=== PATIENT | male | born 1955 | race Caucasian/White ===

== ENCOUNTER → 2016-07-02 | Outpatient (CLI) | payer BC ==
[2016-07-02 13:08] LABS: ALT/SGPT 30 U/L (12-78); AST/SGOT 20 U/L (15-37); BLOOD UREA NITROGEN 26 mg/dl (7-18); BUN/CREATININE RATIO 25.6 (10-20); CALCIUM 8.7 mg/dl (8.5-10.1); CARBON DIOXIDE 31 mmol/L (21-32); CHLORIDE 109 mmol/L (98-107); GLUCOSE 105 mg/dl (70-99); SODIUM 143 mmol/L (136-145)
[2016-07-02 13:11] LABS: ALB/GLOB RATIO 1.3 (0.9-2); ALKALINE PHOSPHATASE 69 U/L (45-117); CHOLESTEROL 125 mg/dl (0-200); CHOLESTEROL/HDL RATIO 3.4; HDL CHOLESTEROL 37 mg/dl; LDL CHOLESTEROL CALCULATED 69 mg/dl; TRIGLYCERIDES 96 mg/dl (0-150); VERY LOW DENSITY LIPOPROT CALC 19 mg/dl
[2016-07-02 13:22] LABS: ESTIMATED AVERAGE GLUCOSE 128 mg/dl; HA1C FLAG Normal (Normal)
== END | disposition home or self-care (01) ==
LOC: C.LABPVFM 08:14
PROVIDERS: ATTEND Family Medicine
DX: R73.01 Impaired fasting glucose (principal); E78.5 Hyperlipidemia, unspecified; I10 Essential (primary) hypertension

== ENCOUNTER → 2016-12-31 | Outpatient (CLI) | payer BC ==
[2016-12-31 13:28] LABS: ESTIMATED AVERAGE GLUCOSE 123 mg/dl; HA1C FLAG Normal (Normal)
[2016-12-31 13:33] LABS: ALB/GLOB RATIO 1.2 (0.9-2); ALKALINE PHOSPHATASE 66 U/L (45-117); ALT/SGPT 30 U/L (12-78); AST/SGOT 23 U/L (15-37); BLOOD UREA NITROGEN 26 mg/dl (7-18); BUN/CREATININE RATIO 26.4 (10-20); CALCIUM 9.3 mg/dl (8.5-10.1); CARBON DIOXIDE 29 mmol/L (21-32); CHLORIDE 108 mmol/L (98-107); CHOLESTEROL 122 mg/dl (0-200); GLUCOSE 110 mg/dl (70-99); HDL CHOLESTEROL 41 mg/dl; LDL CHOLESTEROL CALCULATED 67 mg/dl; POTASSIUM 4.3 mmol/L (3.5-5.1); SODIUM 141 mmol/L (136-145); TRIGLYCERIDES 68 mg/dl (0-150); VERY LOW DENSITY LIPOPROT CALC 14 mg/dl
== END | disposition home or self-care (01) ==
LOC: C.LABPVFM 08:19
PROVIDERS: ATTEND Family Medicine
DX: I10 Essential (primary) hypertension (principal); E78.5 Hyperlipidemia, unspecified

== ENCOUNTER → 2017-06-27 | Outpatient (CLI) | payer BC ==
[2017-06-27 17:34] LABS: ALBUMIN 4.1 gm/dl (3.4-5.0); BLOOD UREA NITROGEN 24 mg/dl (7-18); CALCIUM 9.3 mg/dl (8.5-10.1); CARBON DIOXIDE 29 mmol/L (21-32); CHOLESTEROL 133 mg/dl (0-200); CREATININE 1.07 mg/dl (0.60-1.40); GLUCOSE 90 mg/dl (70-99); POTASSIUM 3.8 mmol/L (3.5-5.1); SODIUM 138 mmol/L (136-145)
[2017-06-27 17:35] LABS: BASO % 0.5 %; BASO ABS # 0.03 K/uL (0-0.2); EOS % 0.8 %; EOS ABS # 0.05 K/uL (0-0.5); HEMATOCRIT 41.5 % (42-52); HEMOGLOBIN 14.1 g/dL (14.0-18.0); IG# 0.01 K/uL (0.00-0.02); LYMPH % 34.5 %; LYMPH ABS # 2.25 K/uL (1.2-3.4); MEAN CELL VOLUME 91.4 fL (80-100); MEAN CORPUSCULAR HEMOGLOBIN 31.1 pg (25-34); MEAN PLATELET VOLUME 9.1 fL (7.4-10.4); MONO % 8.4 %; MONO ABS # 0.55 K/uL (0.11-0.59); NEUT % 55.6 %; NEUT ABS # 3.63 K/uL (1.4-6.5); PLATELET COUNT 191 K/uL (130-400); RED CELL DISTRIBUTION WIDTH CV 14.3 % (11.5-14.5); WHITE BLOOD COUNT 6.52 K/uL (4.8-10.8)
[2017-06-27 17:40] LABS: ALKALINE PHOSPHATASE 64 U/L (45-117); ALT/SGPT 29 U/L (12-78); AST/SGOT 21 U/L (15-37); LDL CHOLESTEROL CALCULATED 75 mg/dl; TOTAL PROTEIN 7.1 gm/dl (6.4-8.2)
== END | disposition home or self-care (01) ==
LOC: C.LABPVFM 15:51
PROVIDERS: ATTEND Family Medicine
DX: I10 Essential (primary) hypertension (principal); E78.5 Hyperlipidemia, unspecified; E88.81 Metabolic syndrome and other insulin resistance; R73.01 Impaired fasting glucose; E66.9 Obesity, unspecified

== ENCOUNTER 2023-03-24 22:05 | Inpatient (IN) ==
[2023-03-24] MEDS ORDERED: SODIUM CHLORIDE 0.9% 500 ML IV STA (22:23)
[2023-03-24] MEDS ORDERED: THIAMINE HCL 200 MG in SODIUM CHLORIDE 0.9% 50 ML IV STA (22:23)
[2023-03-24] MEDS ORDERED: MAGNESIUM SULFATE / D5W 1 GM/100 ML BAG IV STA (22:24)
[2023-03-24] MEDS ORDERED: ATROPINE SO4 1 MG/ML 1ML VIAL ONE (22:28)
--- NOTE | 2023-03-24 22:34 | Emergency Department Note ---
Impression & Plan Syncope, Third degree heart block ED Provider Note NAME: ANASTASIA RADER AGE: 67 SEX: M : 1955 ARRIVES VIA: Walk-In INFORMANT: Patient, ED PROVIDER(S): Roger Jeffery DO CHIEF COMPLAINT: Syncope HPI: The patient is a 67-year-old male who presented to the emergency department for an evaluation of near syncope. The patient was seen in our facility a few days ago with similar complaints. At that time he did actually have a syncopal episode. He fell and struck his face. He had a CT of his head and neck at that time. The patient did not have any clear reason for his syncope and he was able to be discharged home. The patient presents emerged from today because of ongoing and worsening symptoms. I was asked to evaluate the patient after his EKG appeared to be consistent with third-degree heart block. The patient states that he is asymptomatic at this time. He denies having any recent colds or illnesses. He did not noticed any recent tick bites or leg swelling. ROS: See above HPI for pertinent positives & negatives. A total of 10 systems reviewed and were otherwise negative. PAST MEDICAL HISTORY: See Below PAST SURGICAL HISTORY: See Below FAMILY HISTORY: See Below SOCIAL HISTORY: See Below HOME MEDICATIONS: See Below ALLERGIES: See Below VITALS: See Below PHYSICAL EXAMINATION: GENERAL: Patient is awake alert in no acute distress patient is resting comfortably and showing no signs of anxiety EYES: The conjunctivae are clear. The pupils are round and reactive. EARS, NOSE, MOUTH AND THROAT: The nose is without any evidence of any deformity. NECK: The neck is nontender and supple. RESPIRATORY: Normal respiratory effort is noted there is no evidence of wheezing rhonchi or rales CARDIOVASCULAR: Bradycardic and faint heart sounds were noted. There is no definite murmur. GASTROINTESTINAL: The abdomen is soft. Abdomen is nontender. MUSCULOSKELETAL/EXTREMITIES: There is no evidence of gross deformity full range of motion is noted in the hips and shoulders. SKIN: Pedal edema was noted bilaterally. Skin was warm and dry NEUROLOGIC: Patient is awake alert and oriented x3 MEDICAL DECISION MAKING: The patient is a 67-year-old male who presented to the emergency department for an evaluation of syncope. The patient's been having problems with syncope recently. He was seen in our facility a few days ago for similar complaints. The patient did not have any definite cause for his syncope found on his initial ER workup. He presented this evening with similar complaints and was found to be in third-degree heart block. He had a very low heart rate and appeared to be symptomatic. He was treated with atropine with good resolution of his dysrhythmia and now appears to be in a first-degree heart block. I discussed the patient's condition with the on-call [facility] line decorator. I also discussed this case with the on-call [facility] hospitalist. They have agreed to evaluate the patient in the emergency department for further management and disposition. Triage Nursing notes reviewed. Prior medical records reviewed Vital Signs: reviewed and remarkable for initial bradycardia. Differential diagnosis: Vasovagal event, dehydration, infection, hypoglycemia, electrolyte abnormalities, cardiac sources, intracerebral event, pulmonary embolism, seizure, toxicologic, neurologic, as well as other pathologies. ER treatment provided: See below Diagnostics interpreted by me: ECG: EKG was obtained in the emergency department. My interpretation is third- degree heart block at 42 bpm. PVCs were noted. A right bundle branch block pattern was appreciated. This was compared to a tracing from March 22, 2023. First-degree AV block was noted on the previous tracing. A second EKG was obtained in the emergency department. This was obtained after the administration of atropine. My interpretation is sinus tachycardia 109 bpm. Right bundle branch block pattern was noted. First-degree AV block was noted. This compares similar to the EKG obtained on March 22, 2023 although the rate is increased. Cardiac Monitoring: An order was placed for continuous cardiac monitoring. The monitor shows a rate of 94 bpm with first-degree heart block. Laboratory studies: As stated above and show below. Imaging studies: See below. Radiographic imaging was reviewed by myself Consultation(s): I discussed this case with Dr. Lyman who is on-call for [facility] cardiology. The case was discussed with Clyde who is on-call for the [facility] hospitalist group ED COURSE: Procedures: none Critical Care: I have personally spent greater than 35 minutes of critical care time in the direct management of this patient. This includes bedside care, interpretation of diagnostic studies, and testing, discussion with consultants, patient, and family members, and other required patient management activities. This 35 minutes is in excess of all separately billable procedures. Past Med/Surg History Medical History Tendinitis of left rotator cuff Sensorineural hearing loss (SNHL) of left ear with restricted hearing of right ear Left-sided tinnitus Anxiety [place] FEELS PRESSURE ON LEFT SIDE AND BURP WHEN I SWALLOW, COMES AND GOES - REASON FOR UPCOMING PROCEDURE Tick bite hx of , no lymes disease Hx of hemorrhoids Gout hx x 1 - no re-occurence Hyperlipidemia Hypertension Obesity, Class II, BMI 35-39.9 Surgical History History of colonoscopy [place] teeth extracted History of hemorrhoidectomy Family History Mother Family history of cancer Cancer Father Family history of cancer Family history of stomach cancer Cancer Other Hypertension No family history of adverse response to anesthesia No family history of bleeding disorder No pertinent family history Denies family history of Ovarian cancer Prostate cancer Heart disease Myocardial infarction Breast cancer Colorectal cancer Stroke Asthma Social History Smoking Status: Never smoker Second Hand Exposure: No; Do You Dip or Chew Tobacco: No; Hx Alcohol Use: Yes Alcohol type: hard liquor Alcohol type Comment: Fernando Malloy or perez Alcohol Intake Frequency: Monthly or Less Hx Substance Use: No Preferred Language: Luxembourger Communication Ability: Effective Consulting Practice Manager Required: No Beliefs That Will Affect Care: None marital status: Single Current Living Situation: Alone current occupational status: retired How many Children do You have: 0 Feels Safe at Home: Yes Childhood Exposure to Second-Hand Smoke: Yes Diet: regular caffeine: No Dental Care, Regularly: Yes Physical Activity Frequency: 1-2 Times per Week Seatbelt Use: always Sunscreen Use: Yes Assistive Devices: Glasses Allergies Allergies Allergy/AdvReac Type Severity Reaction Status Date / Time amoxicillin Allergy Unknown Rash Verified 02/01/23 14:02 animal dander Allergy Unknown Sneezing Verified 02/01/23 14:02 house dust Allergy Unknown Sneezing Verified 02/01/23 14:02 mold Allergy Unknown Sneezing Verified 02/01/23 14:02 Penicillins Allergy Unknown Rash Verified 02/01/23 14:02 pollen extracts Allergy Unknown Sneezing Verified 02/01/23 14:02 Home Meds Home Medications Medication Instructions Recorded Confirmed Allergy Shots 1 dose UD PRN allergies 03/15/21 02/01/23 azelastine 137 mcg (0.1 %) nasal 1 spray intranasal UD PRN Nasal 03/15/21 02/01/23 spray aerosol Congestion baclofen 10 mg tablet 10 mg PO UD PRN tension 03/15/21 02/01/23 Previous Rx's Medication Instructions Recorded montelukast 10 mg tablet See Rx Instructions .Route 08/22/22 .COMPLEX #30 tabs mldfknzpub-tzoclblkrrlso-rzxawazc 1 tab PO Q6H #30 tabs 09/12/22 50 mg-325 mg-40 mg tablet bupropion HCl 150 mg 24 hr tablet, 150 mg PO QAM #30 tabs 10/24/22 extended release (Wellbutrin XL) tamsulosin 0.4 mg capsule (Flomax) 0.4 mg PO QPM #90 caps 11/07/22 escitalopram oxalate 20 mg tablet 20 mg PO QAM #90 tabs 12/15/22 (Lexapro) irbesartan 150 mg tablet 150 mg PO QPM #90 tabs 12/15/22 omeprazole 40 mg capsule,delayed See Rx Instructions .Route 01/29/23 release .COMPLEX #90 caps levocetirizine 5 mg tablet 5 mg PO DAILY #30 tabs 02/01/23 atorvastatin 80 mg tablet 80 mg PO QPM #90 tabs 02/06/23 fluticasone propionate 50 1 spray intranasal BID #16 grams 02/28/23 mcg/actuation nasal spray,suspension lorazepam 0.5 mg tablet (Ativan) 0.5 mg PO UD PRN anxiety #15 tabs 02/28/23 hydrochlorothiazide 25 mg tablet 25 mg PO QAM #90 tabs 03/21/23 Results & Data (ED) Vital Signs Vital Signs - 24 hr 03/24/23 22:12 03/24/23 22:20 03/24/23 22:37 Temperature 36.3 C L Temperature Source Temporal Artery Scan Pulse Rate 36 L 36 L 117 H Pulse Rate [Apical] Pulse Rhythm [Apical] Pulse Strength [Apical] Respiratory Rate 18 Respiratory Effort / Characteristics Non-Labored Spontaneous Respiratory Depth Normal Respiratory Pattern Blood Pressure 142/70 H Blood Pressure [Right Arm] Blood Pressure Mean 94 Blood Pressure Mean [Right Arm] Pulse Oximetry 95 Oxygen Delivery Method Room Air Sepsis Recent Fever Within 48 Hours No Sepsis New/Unexplained Change in Mental Status No Sepsis Action Taken by Nursing No Action Required 03/24/23 22:50 Temperature Temperature Source Pulse Rate Pulse Rate [Apical] 103 H Pulse Rhythm [Apical] Regular Pulse Strength [Apical] Normal Respiratory Rate 17 Respiratory Effort / Characteristics Non-Labored Spontaneous Respiratory Depth Normal Respiratory Pattern Regular Blood Pressure Blood Pressure [Right Arm] 128/93 Blood Pressure Mean Blood Pressure Mean [Right Arm] 104 Pulse Oximetry 92 Oxygen Delivery Method Room Air Sepsis Recent Fever Within 48 Hours Sepsis New/Unexplained Change in Mental Status Sepsis Action Taken by Assisted Medications Current Medication List: was personally reviewed by me Laboratory Data Attestation: I reviewed the patient's lab results. 03/24/23 22:30 03/24/23 22:30 Lab Results 03/24/23 03/24/23 03/24/23 Range/Units 22:30 22:35 23:07 WBC 11.51 H (4.8-10.8) K/ul RBC 4.88 (4.70-6.10) M/uL Hgb 14.7 (14.0-18.0) g/dl POC Hgb 15.3 (14.0-18.0) g/dl Hct 45.2 (42.0-52.0) % POC Hct 45 (42-52) % MCV 92.6 (80.0-100.0) fL MCH 30.1 (25.0-34.0) pg MCHC 32.5 (32.0-36.0) g/dL RDW Std Deviation 46.7 H (36.4-46.3) fL RDW Coeff of Marcus 13.8 (11.5-14.5) % Plt Count 212 (130-400) K/uL MPV 9.4 (9.4-12.4) fL Immature Gran % (Auto) 0.3 % Neut % (Auto) 77.8 % Lymph % (Auto) 13.4 % [place] % (Auto) 7.8 % Eos % (Auto) 0.3 % Baso % (Auto) 0.4 % Neut # (Auto) 8.95 H (1.40-6.50) K/uL Lymph # (Auto) 1.54 (1.20-3.40) K/uL [place]ell # (Auto) 0.90 H (0.11-0.59) K/uL Eos # (Auto) 0.03 (0.00-0.50) K/uL Baso # (Auto) 0.05 (0.00-0.20) K/uL Immature Gran # (Auto) 0.04 (0.01-0.20) K/uL PT 10.6 (9.0-12.0) Seconds INR 1.0 (0.9-1.1) APTT 21 (21-31) Seconds PTT Ratio 0.7 POC Sodium 139 (135-144) mmol/L Sodium 138 (136-145) mmol/L POC Potassium 4.5 (3.3-5.0) mmol/L Potassium 3.6 (3.5-5.1) mmol/L POC Chloride 103 (101-112) mmol/L Chloride 102 (98-107) mmol/L Carbon Dioxide 24 (21-32) mmol/L POC Total CO2 26 (24-31) mmol/L Anion Gap 12 H (3-11) POC Anion Gap 16.0 (16-25) mmol/L POC BUN 26 H (7-18) mg/dl BUN 22 (6-23) mg/dl Creatinine 1.19 (0.6-1.4) mg/dl POC Creatinine 1.3 (0.6-1.3) mg/dl Est Cr Clr Drug Dosing 69.5 ml/min Est GFR ( Amer) 71.8 ml/min Est GFR (Non-Af Amer) 62.0 ml/min BUN/Creatinine Ratio 18.5 (10-20) Glucose 109 H (70-99(Fasting)) mg/dl POC Glucose (other) 111 H (70-99) mg/dl Calcium 9.9 (8.6-10.3) mg/dl POC Ioniz Calcium Chandler 1.12 (1.12-1.32) mmol/l Magnesium 2.1 (1.7-2.4) mg/dl Total Bilirubin 0.9 (0.2-1.0) mg/dl ALT 23 (7-52) U/L Alkaline Phosphatase 108 H (34-104) U/L Troponin I High Sens 38.2 H (0-20) pg/ml Total Protein 7.4 (6.0-8.3) gm/dl Albumin 4.4 (3.4-5.0) gm/dl Globulin 3.0 (2.5-4.0) gm/dl Albumin/Globulin Ratio 1.5 (0.9-2) TSH 1.520 (0.300-4.500) uIu/ml Ethyl Alcohol mg/dL < 10.0 (<10.0) mg/dl Lyme Disease IgG Ab Negative (Negative) Lyme Disease IgM Ab Negative (Negative) Administered Medications Discontinued Medications Atropine Sulfate (Atropine So4 1 Mg/Ml 1ml Vial) Confirm Administered Dose 1 mg .ROUTE .[employer] ONE Stop: 03/24/23 22:29 Last Admin: 03/24/23 22:29 Dose: 0.5 mg Documented By: FELECIA Sodium Chloride (Nss) 500 mls @ 999 mls/hr IV .Q31M STA Stop: 03/24/23 22:53 Last Infusion: 03/25/23 00:10 Dose: Infused Documented By: Admin: 03/24/23 22:48 Dose: 999 mls/hr Documented By: ALEXA Thiamine HCl 200 mg/ Sodium (Chloride) 52 mls @ 210 mls/hr IV NOW STA Stop: 03/24/23 22:37 Last Admin: 03/25/23 00:09 Dose: 210 mls/hr Documented By: MARTHA Magnesium Sulfate/Dextrose (Magnesium Sulfate / D5w) 1 gm in 100 mls @ 100 mls/hr IV NOW STA Stop: 03/24/23 23:23 Last Infusion: 03/25/23 00:10 Dose: Infused Documented By: Admin: 03/24/23 22:32 Dose: 100 mls/hr Documented By: FELECIA Imaging Data Attestation: I personally reviewed and interpreted this imaging study as follows: My Impression: 1 view chest x-ray was obtained in the emergency department. My interpretation is no free air or definite infiltrate, final report below Radiologist's Impression: Chest X-Ray 03/24/23 22:24 SINGLE VIEW CHEST CLINICAL HISTORY: Dysrhythmia. FINDINGS: 2 AP, portable, upright chest radiographs are compared to study dated 06/29/2022. The heart is enlarged noting atherosclerotic calcification of the thoracic aorta. The pulmonary vasculature is noncongested. There is chronic elevation of the right hemidiaphragm with mild bibasilar atelectasis. The lungs and pleural spaces are otherwise clear. No pneumothorax is seen. The skeletal structures are osteopenic. The bony thorax is grossly intact. IMPRESSION: Mild cardiomegaly with no active disease in the chest. ACT 112: Negative or not required by law. Electronically signed by: Elieser Schneider M.D. 03/24/2023 10:45 PM Discharge Plan Visit Data Chief Complaint: Illness Stated Complaint: SHAKING, UNBALANCED, STANDS UP/FEELS OUT OF IT ED Provider: Roger Jeffery Discharge Problem: Syncope, Third degree heart block Patient Disposition: Being Evaluated by Hospitalist Forms Stand Alone Forms: My [facility] Prescriptions Prescriptions: No Action montelukast 10 mg tablet See Rx Instructions .ROUTE .COMPLEX Qty: 30 11RF Dose Instruction: TAKE ONE TABLET BY MOUTH ONCE DAILY IN THE EVENING Rx Instructions: TAKE ONE TABLET BY MOUTH ONCE DAILY IN THE EVENING ijsvyafbsj-cvtucdtjgdrvc-lfge 50-325-40 mg tablet 1 tab PO Q6H Qty: 30 5RF bupropion HCl [Wellbutrin XL] 150 mg tablet extended release 24 hr 150 mg PO QAM Qty: 30 5RF tamsulosin [Flomax] 0.4 mg capsule 0.4 mg PO QPM Qty: 90 1RF escitalopram oxalate [Lexapro] 20 mg tablet 20 mg PO QAM Qty: 90 1RF irbesartan 150 mg tablet 150 mg PO QPM Qty: 90 1RF omeprazole 40 mg capsule,delayed release(DR/EC) See Rx Instructions .ROUTE .COMPLEX Qty: 90 5RF Dose Instruction: TAKE 1 CAPSULE BY MOUTH ONCE DAILY Rx Instructions: TAKE 1 CAPSULE BY MOUTH ONCE DAILY atorvastatin 80 mg tablet 80 mg PO QPM Qty: 90 1RF fluticasone propionate 50 mcg/actuation spray,suspension 1 spray INTNAS BID Qty: 16 0RF Rx Instructions: 1 to 2 sprays INTNAS DAILY; administer into each nostril lorazepam [Ativan] 0.5 mg tablet 0.5 mg PO UD PRN (Reason: anxiety) Qty: 15 0RF hydrochlorothiazide 25 mg tablet 25 mg PO QAM Qty: 90 1RF levocetirizine 5 mg tablet 5 mg PO DAILY Qty: 30 11RF baclofen 10 mg tablet 10 mg PO UD PRN (Reason: tension) azelastine 137 mcg (0.1 %) aerosol,spray 1 spray intranasal UD PRN (Reason: Nasal Congestion) Patient Comments: not very much Rx Instructions: Use 1-2 sprays in each nostril at bedtime as needed for nasal congestion. Allergy Shots 1 dose UD PRN (Reason: allergies) Patient Comments: once every 2 weeks Referrals Referrals: Pat Andujar MD [Primary Care Provider] - Discharge Problem: Syncope Qualifiers: Syncope type: unspecified Qualified Code(s): R55 - Syncope and collapse
--- NOTE | 2023-03-24 22:46 | XRay Report ---
SINGLE VIEW CHEST CLINICAL HISTORY: Dysrhythmia. FINDINGS: 2 AP, portable, upright chest radiographs are compared to study dated 06/29/2022. The heart is enlarged noting atherosclerotic calcification of the thoracic aorta. The pulmonary vasculature is noncongested. There is chronic elevation of the right hemidiaphragm with mild bibasilar atelectasis. The lungs and pleural spaces are otherwise clear. No pneumothorax is seen. The skeletal structures ar e osteopenic. The bony thorax is grossly intact. IMPRESSION: Mild cardiomegaly with no active disease in the chest. ACT 112: Negative or not required by law. Electronically signed by: Elieser Schneider M.D. 03/24/2023 10:45 PM
[2023-03-24 22:48] LABS: iSTAT Creatinine 1.3 mg/dl (0.6-1.3); iSTAT Hemoglobin 15.3 g/dl (14.0-18.0); iSTAT Ionized Calcium 1.12 mmol/l (1.12-1.32); iSTAT Potassium 4.5 mmol/L (3.3-5.0)
[2023-03-24 23:04] LABS: Basophils # (auto) 0.05 K/uL (0.00-0.20); Basophils % (auto) 0.4 %; Eosinophils # (auto) 0.03 K/uL (0.00-0.50); Eosinophils % (auto) 0.3 %; Hematocrit (blood only) 45.2 % (42.0-52.0); Hemoglobin 14.7 g/dl (14.0-18.0); Immature Granulocytes # (auto) 0.04 K/uL (0.01-0.20); Immature Granulocytes % (auto) 0.3 %; Lymphocytes # (auto) 1.54 K/uL (1.20-3.40); Lymphocytes % (auto) 13.4 %; Mean Corpuscular Hemoglobin 30.1 pg (25.0-34.0); Mean Corpuscular Hgb Conc 32.5 g/dL (32.0-36.0); Mean Corpuscular Volume 92.6 fL (80.0-100.0); Mean Platelet Volume 9.4 fL (9.4-12.4); Monocytes % (auto) 7.8 %; Neutrophils # (auto) 8.95 K/uL (1.40-6.50); Neutrophils % (auto) 77.8 %; Platelet Count 212 K/uL (130-400); RDW Coefficient of Variation 13.8 % (11.5-14.5); RDW Standard Deviation 46.7 fL (36.4-46.3); Red Blood Count 4.88 M/uL (4.70-6.10); White Blood Count 11.51 K/ul (4.8-10.8)
[2023-03-24 23:27] LABS: Partial Thromboplastin Ratio 0.7; Partial Thromboplastin Time 21 Seconds (21-31); Prothrombin Time 10.6 Seconds (9.0-12.0)
[2023-03-24 23:35] LABS: Lyme Ab IgG w/WB Rflx Negative (Negative); Lyme Ab IgM w/WB Rflx Negative (Negative)
[2023-03-24 23:48] LABS: Albumin Globulin Ratio 1.5 (0.9-2); Albumin Level 4.4 gm/dl (3.4-5.0); BUN Creatinine Ratio 18.5 (10-20); Bilirubin,Total 0.9 mg/dl (0.2-1.0); Calcium 9.9 mg/dl (8.6-10.3); Creatinine Clr Calc Pharmacy 69.5 ml/min; Est GFR (African American) 71.8 ml/min; Magnesium 2.1 mg/dl (1.7-2.4); Thyroid Stimulating Hormone 1.52 uIu/ml (0.300-4.500); Total Protein 7.4 gm/dl (6.0-8.3); Troponin I High Sensitivity 38.2 pg/ml (0-20)
[2023-03-24 23:51] LABS: Potassium 3.6 mmol/L (3.5-5.1)
--- NOTE | 2023-03-25 00:45 | History & Physical Report ---
Date of Service March 25, 2023 Assessment & Plan (1) Admitted to intensive care unit: (2) Third degree heart block: (3) Syncope: (4) Depression: (5) Sleep disorder, circadian, delayed sleep phase type: (6) CHI (closed head injury): (7) BPH loc w urin obs/LUTS: (8) Hypertension: (9) Hyperlipidemia: Plan Admitted to intensive care unit/third-degree heart block/recurrent syncope- The patient will be admitted to ICU for serial cardiac enzymes, serial EKG's, cardiac rhythm monitoring and a 2-D echocardiogram with Dopplers. NPO except sips Status post atropine 1 mg IV in the ED Present heart rate low 103, and blood pressure 128/93 If symptoms occur again, patient will be started on dopamine at that time Consult feedmobile driver Dr. Norman and staff Optimize potassium of 3.6 with 2 KCl 10 mill equivalent riders to a target of 4. Magnesium is acceptable at 2.1 Lyme test negative Troponin 38.2, with follow-up pending CT head and cervical spine - 03/22/2023 Patient has had monitors in the outpatient setting, which have noted episodes of tachycardia and extra heartbeats. Consult cardiology for assessment for need for pacer Follow serial CBC with differential, chemistry profile and magnesium levels Depression- While n.p.o., hold Bupropion, escitalopram, lorazepam Hypertension- Hold HCTZ and irbesartan BPH with LUTS- On tamsulosin 0.4 mg at bedtime. Not likely a contributing factor History of Present Illness Chief Complaint: The patient presents to the emergency department with an approximate 8-year history of near syncopal episodes, which he reports have worsened since November. He was most recently seen in the emergency department 2 days ago for a syncopal episode, had workup done at that time which was negative. He presents to the emergency department this evening due to another episode of near syncope, and in the emergency department was found to be in third-degree heart block with heart rate of 36, which responded to atropine with increased heart rate to the low 100s, and blood pressure continued to be in the normal range with 120s-130s over Primary Care Provider: Pat Andujar MD The patient is a 67-year-old male with a past medical history including syncope, left rotator cuff tendinitis and bicipital tendinitis, SNHL, Anderson's esophagus, impaired fasting glucose, BPH, bifascicular block, circadian rhythm delayed sleep disorder, and depression. The patient presents to the emergency department with an episode of syncope on 03/22, with negative workup at that time, and a recurrent episode of near syncope this evening. He was found to be in third-degree heart block, given atropine IV from the ED, and was then referred for evaluation for admission. Allergies Allergy/AdvReac Type Severity Reaction Status Date / Time amoxicillin Allergy Intermediate Rash Verified 03/25/23 00:12 animal dander Allergy Mild Sneezing Verified 03/25/23 00:12 house dust Allergy Mild Sneezing Verified 03/25/23 00:12 mold Allergy Mild Sneezing Verified 03/25/23 00:12 Penicillins Allergy Mild Rash Verified 03/25/23 00:12 pollen extracts Allergy Mild Sneezing Verified 03/25/23 00:12 Home Medications Medication Instructions Recorded Confirmed Type Allergy Shots 1 dose subcut UD PRN allergies 03/15/21 03/25/23 History azelastine 137 mcg (0.1 %) nasal 1 spray intranasal UD PRN Nasal 03/15/21 03/25/23 History spray aerosol Congestion baclofen 10 mg tablet 10 mg PO UD PRN tension 03/15/21 03/25/23 History bupropion HCl 150 mg 24 hr tablet, 150 mg PO QAM #30 tabs 10/24/22 03/25/23 Rx extended release (Wellbutrin XL) tamsulosin 0.4 mg capsule (Flomax) 0.4 mg PO QPM #90 caps 11/07/22 03/25/23 Rx escitalopram oxalate 20 mg tablet 20 mg PO QAM #90 tabs 12/15/22 03/25/23 Rx (Lexapro) irbesartan 150 mg tablet 150 mg PO QPM #90 tabs 12/15/22 03/25/23 Rx levocetirizine 5 mg tablet 5 mg PO DAILY #30 tabs 02/01/23 03/25/23 Rx atorvastatin 80 mg tablet 80 mg PO QPM #90 tabs 02/06/23 03/25/23 Rx fluticasone propionate 50 1 spray intranasal BID #16 grams 02/28/23 03/25/23 Rx mcg/actuation nasal spray,suspension lorazepam 0.5 mg tablet (Ativan) 0.5 mg PO UD PRN anxiety #15 tabs 02/28/23 03/25/23 Rx hydrochlorothiazide 25 mg tablet 25 mg PO QAM #90 tabs 03/21/23 03/25/23 Rx keiooagrbq-fbyndcwrlpdeu-qvkghsur 1 tab PO Q6H PRN HEADACHES 03/25/23 03/25/23 History 50 mg-325 mg-40 mg tablet montelukast 10 mg tablet 10 mg PO QPM 03/25/23 03/25/23 History omeprazole 40 mg capsule,delayed 40 mg PO DAILY 03/25/23 03/25/23 History release Past Med/Surg History Medical History (Updated 03/25/23 @ 01:12 by Ismael Tang MD) BPH loc w urin obs/LUTS Tendinitis of left rotator cuff Sensorineural hearing loss (SNHL) of left ear with restricted hearing of right ear Left-sided tinnitus Anxiety Burping FEELS PRESSURE ON LEFT SIDE AND BURP WHEN I SWALLOW, COMES AND GOES - REASON FOR UPCOMING PROCEDURE Tick bite hx of , no lymes disease Hx of hemorrhoids Gout hx x 1 - no re-occurence Hyperlipidemia Hypertension Obesity, Class II, BMI 35-39.9 Surgical History History of colonoscopy [place] teeth extracted History of hemorrhoidectomy Family History Mother Family history of cancer Cancer Father Family history of cancer Family history of stomach cancer Cancer Other Hypertension No family history of adverse response to anesthesia No family history of bleeding disorder No pertinent family history Denies family history of Ovarian cancer Prostate cancer Heart disease Myocardial infarction Breast cancer Colorectal cancer Stroke Asthma Social History Smoking Status: Never smoker Second Hand Exposure: No; Do You Dip or Chew Tobacco: No; Hx Alcohol Use: Yes Alcohol type: hard liquor Alcohol type Comment: Fernando Malloy or perez Alcohol Intake Frequency: Monthly or Less Hx Substance Use: No Preferred Language: Malaysian Communication Ability: Effective Clerical Coordinator Required: No Beliefs That Will Affect Care: None marital status: Single Current Living Situation: Alone current occupational status: retired How many Children do You have: 0 Feels Safe at Home: Yes Childhood Exposure to Second-Hand Smoke: Yes Diet: regular caffeine: No Dental Care, Regularly: Yes Physical Activity Frequency: 1-2 Times per Week Seatbelt Use: always Sunscreen Use: Yes Assistive Devices: Glasses Review of Systems Review of Systems: The patient denies palpitations, cough, lower extremity swelling, sore throat, fevers, chills, sweats, nausea, vomiting, diarrhea , constipation, abdominal pa in, pelvic pain, blood in urine or stool, dysuria, urinary frequency or urgency, rash, abnormal bruising or bleeding, focal weakness, numbness or tingling in arms or legs, generalized arthralgias or myalgias, back or neck pain, or night sweats. The review of systems is otherwise negative other than for that already noted above, and at least 10 systems have been reviewed. Physical Exam Physical Exam: The patient is awake, alert and oriented 3, well developed and well nourished, normocephalic and atraumatic, lying in bed and in no acute distress. HEENT--PERRL, EOMI, mucous membranes and oropharynx mildly dry. Neck--supple. No JVD. No bruits. Thyroid normal, trachea midline, no adenopathy. Heart--normal S1 and S2. No murmurs, rubs or gallops. Lungs--clear bilaterally, no respiratory distress, no accessory muscle use. Abdomen--normal bowel sounds and soft. Nontender. Nondistended. Obese Extremities--no cyanosis or clubbing. No edema. Dermatologic--normal skin turgor, normal color, no abnormal lymph nodes, no rash. Neurologic--cranial nerves II through XII grossly intact. Rheumatologic--normal range of motion. Psychiatric--normal affect. Results & Data Results & Data Vital Signs (Past 12 Hours) Vital Signs Temp Pulse Pulse Resp BP BP Pulse Ox 03/24/23 22:50 103 H 17 128/93 92 03/24/23 22:37 117 H 03/24/23 22:20 36 L 03/24/23 22:12 36.3 C L 36 L 18 142/70 H 95 O2 Del Method 03/24/23 22:50 Room Air 03/24/23 22:37 03/24/23 22:20 03/24/23 22:12 Room Air Laboratory Results Laboratory Results WBC 11.51 K/ul (4.8-10.8) H 03/24/23 22:30 RBC 4.88 M/uL (4.70-6.10) 03/24/23 22:30 Hgb 14.7 g/dl (14.0-18.0) 03/24/23 22:30 POC Hgb 15.3 g/dl (14.0-18.0) 03/24/23 22:35 Hct 45.2 % (42.0-52.0) 03/24/23 22:30 POC Hct 45 % (42-52) 03/24/23 22:35 MCV 92.6 fL (80.0-100.0) 03/24/23 22:30 MCH 30.1 pg (25.0-34.0) 03/24/23 22:30 MCHC 32.5 g/dL (32.0-36.0) 03/24/23 22:30 RDW Std Deviation 46.7 fL (36.4-46.3) H 03/24/23 22:30 RDW Coeff of Marcus 13.8 % (11.5-14.5) 03/24/23 22:30 Plt Count 212 K/uL (130-400) 03/24/23 22:30 MPV 9.4 fL (9.4-12.4) 03/24/23 22:30 Immature Gran % (Auto) 0.3 % 03/24/23 22:30 Neut % (Auto) 77.8 % 03/24/23 22:30 Lymph % (Auto) 13.4 % 03/24/23 22:30 [place] % (Auto) 7.8 % 03/24/23 22:30 Eos % (Auto) 0.3 % 03/24/23 22:30 Baso % (Auto) 0.4 % 03/24/23 22:30 Neut # (Auto) 8.95 K/uL (1.40-6.50) H 03/24/23 22:30 Lymph # (Auto) 1.54 K/uL (1.20-3.40) 03/24/23 22:30 [place] # (Auto) 0.90 K/uL (0.11-0.59) H 03/24/23 22:30 Eos # (Auto) 0.03 K/uL (0.00-0.50) 03/24/23 22:30 Baso # (Auto) 0.05 K/uL (0.00-0.20) 03/24/23 22:30 Immature Gran # (Auto) 0.04 K/uL (0.01-0.20) 03/24/23 22:30 PT 10.6 Seconds (9.0-12.0) 03/24/23 22:30 INR 1.0 (0.9-1.1) 03/24/23 22:30 APTT 21 Seconds (21-31) 03/24/23 22:30 PTT Ratio 0.7 03/24/23 22:30 POC Sodium 139 mmol/L (135-144) 03/24/23 22:35 Sodium 138 mmol/L (136-145) 03/24/23 22:30 POC Potassium 4.5 mmol/L (3.3-5.0) 03/24/23 22:35 Potassium 3.6 mmol/L (3.5-5.1) 03/24/23 22:30 POC Chloride 103 mmol/L (101-112) 03/24/23 22:35 Chloride 102 mmol/L (98-107) 03/24/23 22:30 Carbon Dioxide 24 mmol/L (21-32) 03/24/23 22:30 POC Total CO2 26 mmol/L (24-31) 03/24/23 22:35 Anion Gap 12 (3-11) H 03/24/23 22:30 POC Anion Gap 16.0 mmol/L (16-25) 03/24/23 22:35 POC BUN 26 mg/dl (7-18) H 03/24/23 22:35 BUN 22 mg/dl (6-23) 03/24/23 22:30 Creatinine 1.19 mg/dl (0.6-1.4) 03/24/23 22:30 POC Creatinine 1.3 mg/dl (0.6-1.3) 03/24/23 22:35 Est Cr Clr Drug Dosing 69.5 ml/min 03/24/23 22:30 Est GFR ( Amer) 71.8 ml/min 03/24/23 22:30 Est GFR (Non-Af Amer) 62.0 ml/min 03/24/23 22:30 BUN/Creatinine Ratio 18.5 (10-20) 03/24/23 22:30 Glucose 109 mg/dl (70-99(Fasting)) H 03/24/23 22:30 POC Glucose (other) 111 mg/dl (70-99) H 03/24/23 22:35 Calcium 9.9 mg/dl (8.6-10.3) 03/24/23 22:30 POC Ioniz Calcium Chandler 1.12 mmol/l (1.12-1.32) 03/24/23 22:35 Magnesium 2.1 mg/dl (1.7-2.4) 03/24/23 22:30 Total Bilirubin 0.9 mg/dl (0.2-1.0) 03/24/23 22:30 AST 20 U/L (13-39) 03/24/23 22:30 ALT 23 U/L (7-52) 03/24/23 22:30 Alkaline Phosphatase 108 U/L (34-104) H 03/24/23 22:30 Troponin I High Sens 38.2 pg/ml (0-20) H 03/24/23 22:30 Total Protein 7.4 gm/dl (6.0-8.3) 03/24/23 22:30 Albumin 4.4 gm/dl (3.4-5.0) 03/24/23 22:30 Globulin 3.0 gm/dl (2.5-4.0) 03/24/23 22:30 Albumin/Globulin Ratio 1.5 (0.9-2) 03/24/23 22:30 TSH 1.520 uIu/ml (0.300-4.500) 03/24/23 22:30 Ethyl Alcohol mg/dL < 10.0 mg/dl (<10.0) 03/24/23 23:07 Lyme Disease IgG Ab Negative (Negative) 03/24/23 22:30 Lyme Disease IgM Ab Negative (Negative) 03/24/23 22:30 Impressions Chest X-Ray 03/24/23 22:24 SINGLE VIEW CHEST CLINICAL HISTORY: Dysrhythmia. FINDINGS: 2 AP, portable, upright chest radiographs are compared to study dated 06/29/2022. The heart is enlarged noting atherosclerotic calcification of the thoracic aorta. The pulmonary vasculature is noncongested. There is chronic elevation of the right hemidiaphragm with mild bibasilar atelectasis. The lungs and pleural spaces are otherwise clear. No pneumothorax is seen. The skeletal structures are osteopenic. The bony thorax is grossly intact. IMPRESSION: Mild cardiomegaly with no active disease in the chest. ACT 112: Negative or not required by law. Electronically signed by: Elieser Schneider M.D. 03/24/2023 10:45 PM Code Status & VTE Plan Code Status Full code VTE Prophylaxis Plan VTE Prophylaxis will be ordered: Yes PG Care Time/CCT Total # of Minutes Spent Total Time Spent with Patient: Total time spent is greater than 50% in coordination of care (as documented) at patient's floor/unit and/or counseling patient: Coding Level of Care Code 22827 INT INP/OBS CARE 3/75MIN Diagnoses Admitted to intensive care unit Z78.9 Third degree heart block I44.2 Syncope R55 Syncope type: unspecified Depression, unspecified depression type F32.A Depression Type: unspecified Sleep disorder, circadian, delayed sleep phase type G47.21 CHI (closed head injury) S09.90XA Encounter type: initial encounter BPH loc w urin obs/LUTS N40.1 Primary hypertension I10 Hypertension type: primary hypertension Mixed hyperlipidemia E78.2 Hyperlipidemia type: mixed hyperlipidemia (3) Syncope Syncope type: unspecified Qualified Code(s): R55 - Syncope and collapse (4) Depression Depression Type: unspecified Qualified Code(s): F32.A - Depression, unspecified (6) CHI (closed head injury) Encounter type: initial encounter Qualified Code(s): S09.90XA - Unspecified injury of head, initial encounter (8) Hypertension Hypertension type: primary hypertension Qualified Code(s): I10 - Essential (primary) hypertension (9) Hyperlipidemia Hyperlipidemia type: mixed hyperlipidemia Qualified Code(s): E78.2 - Mixed hyperlipidemia
--- NOTE | 2023-03-25 01:05 | Critical Care Consultation ---
Date of Consultation March 25, 2023 Assessment & Plan (1) Third degree heart block: (2) Syncope: (3) Abrasion of face: (4) Barretts esophagus: (5) Impaired fasting glucose: (6) RBBB (right bundle branch block): Plan Reason Critically Ill: 67 YOM with history of "spells", however did have syncope like activity on 22 Mar 2023 and presented today with 3 blurry vision episodes associated with palpations and dizziness. Did have an ECG captured today which showed 3rd degree AV block. Patient received Atropine x1mg in the EMD with resolution of rhythm. Brought to the ICU for monitoring of rhythm and chronotropic medications if needed. Neuro - Headaches, Syncope with head strike CAM ICU: Negative - Patient gets chronic headaches which he attributes to sinus and allergies and is followed by allergy - Current headache is consistent with headaches that he gets usually- he is without neurological changes, vision changes, and without nausea/vomitting - Follow neurological exams for DASH following his head strike a few days ago - Syncope see below Cardiac - Syncope, 3rd degree AV block, HTN, HLD - Resolved following Atropine- follow telemetry overnight- Lyme negative, TSH normal range - Is without chest pain and ECG is without acute STEMI - Cardiology consultation appreciated for further risk stratification work up and evaluation for PPM - ECHO in am - Continue to trend HScTNI - Continue ARB, Continue Statin Respiratory - No acute needs GI - GERD with Geraldo's Esophagus - Continue PPI RENAL/LYTES - No acute needs - ICU electrolyte protocol - No acute needs ENDO - Pre-diabetic - ICU hyperglycemic protocol HEME - No acute needs ID - No acute concerns for infectious etiology at this time LINES/IV ACCESS - PIV Continue use of these lines DVT PROPHYLAXIS - SCDS, Lovenox 40mg SQ daily DISPO: ICU until hemodynamics proven stable I have personally spent 45 minutes of critical care time in the direct management of this patient. This is a life/limb threatening event. This includes time spent evaluating patient, direct bedside care, chart review, placing orders, interpretation of diagnostic studies, discussion with consultants, patie nt, and family members, as well as other required patient management activities. This time is exclusive of all separately billable procedures, and teaching time and separate from and in addition to any other critical care service time. Thank you for allowing us to participate in the care of this patient. Please refer to my attending physician's documentation for any further recommendations. Supervising Physician Co-Signing Physician Notes Discussed with cardiology, plan for permanent pacer, probably Monday. Not requ iring intervention at this time. History of Present Illness Reason for Consultation: 3rd degree AV block with syncope Requesting Physician: Ismael Tang MD Attending Physician: Ismael Tang MD History of Present Illness 67 YOM with medical history of: DM II, GERD, RBBB, HTN, 1st degree AV block, BPH, Allergic Rhinitis, Sleep disorder- delayed sleep phase. Patient comes to the EMD today following 3 episodes of "spells" that occurred today, and one episode that occurred 03/22/22. The episode that occurred on the resulted in patient reports "just going black" falling and hitting face and head on his driveway- he had CT scan of head, and cervical spine completed- these were negative for fracture or acute intracranial process and he was discharged and followed up with his PCP on 03/24/23. Today the patient reports working out in the garage and going in to sit on his chair, where he report that his vision got all fuzzy and he also go lightheaded. He reports that this lasted 6-10 minutes, for which he reports this is "long for these episodes:, after that he reports he got up and felt ok, went to get drink and came back and sat in his chair again, he had another spell of fuzzy vision and light headedness. The second episode lasted only a few minutes and went away. He was able to get up and do some other small things around the house without any difficulty. He reports then at around 1700 he laid back in his chair to nap, when his neice brought groceries over to the house. He got up to go help her put the groceries away and then got another spell of fuzzy vision and light headedness. This was around 5 minutes and once he felt better, he came to the EMD. In the EMD he was noted to be in complete heart block with HR in the 30s-40s with PVC and RBB pattern, for which he was given atropine x1 and placed on TCP pads. Cardiology assistant director of admissions was contacted and patient was admitted to the hospitalist service. Patient symptoms that he describes over the past few days, are that he gets NO warning, and then vision starts getting all blurry, but denies loss of visual tinoco, and it is both eyes, and it is then followed by dizziness if it lasts long enough. It then spontaneously resolves itself. At times he states that he does get a warm feeling over his body, but this did not happen with either episode today or on the 3rd. He also endorses that he is able to hear during these episodes and move his extremities, they have never been associated with vertiginousness symptoms, or loss of bowel or bladder. He denies having any chest pain prior to or after these episodes as well. From a cardiac standpoint- he reports easy fatiguable with sweating and dyspnea with minimal exertion, which limits his physical ability. He is unable to lay flat to sleep secondary to difficulty breathing as well as feeling palpitations in his chest so he sleeps in his recliner. He does not feel as his les get swollen or pants fitting tighter. He is also poor at medications that he takes, so would have to question his compliance. Patient reports that he has had these episodes for about 8 years or so. He previously followed with Dr. Alberts at [facility] Cardiology up until appears 2020. He underwent stress test at that time that appears to have been negative with 114% of MPHR. He also underwent mobile continuous telemetry monitoring. This was interpreted in 05/10- with underlying first degree AV block, PACs, PVCs, 1 episode of NSVT. He then was referred to Neurology and underwent, MRI, EEG as well as sleep study. EEG was negative for epileptiform activity, and sleep study was diagnosed with sleep disorder [place]ia delay of sleep phase, which appears may have attributed to medication overuse. The symptoms that he had at that time was feeling of "tensing all over his body and then feel as he was going to fall as well as tingling in his arms. Patient will be admitted to the ICU for continued telemetry monitoring, chronotropic support if needed, and TCP/TVP if required. CODE: FULL Allergies Allergy/AdvReac Type Severity Reaction Status Date / Time amoxicillin Allergy Intermediate Rash Verified 03/25/23 00:12 animal dander Allergy Mild Sneezing Verified 03/25/23 00:12 house dust Allergy Mild Sneezing Verified 03/25/23 00:12 mold Allergy Mild Sneezing Verified 03/25/23 00:12 Penicillins Allergy Mild Rash Verified 03/25/23 00:12 pollen extracts Allergy Mild Sneezing Verified 03/25/23 00:12 Home Medications Medication Instructions Recorded Confirmed Type Allergy Shots 1 dose subcut UD PRN allergies 03/15/21 03/25/23 History azelastine 137 mcg (0.1 %) nasal 1 spray intranasal UD PRN Nasal 03/15/21 03/25/23 History spray aerosol Congestion baclofen 10 mg tablet 10 mg PO UD PRN tension 03/15/21 03/25/23 History bupropion HCl 150 mg 24 hr tablet, 150 mg PO QAM #30 tabs 10/24/22 03/25/23 Rx extended release (Wellbutrin XL) tamsulosin 0.4 mg capsule (Flomax) 0.4 mg PO QPM #90 caps 11/07/22 03/25/23 Rx escitalopram oxalate 20 mg tablet 20 mg PO QAM #90 tabs 12/15/22 03/25/23 Rx (Lexapro) irbesartan 150 mg tablet 150 mg PO QPM #90 tabs 12/15/22 03/25/23 Rx levocetirizine 5 mg tablet 5 mg PO DAILY #30 tabs 02/01/23 03/25/23 Rx atorvastatin 80 mg tablet 80 mg PO QPM #90 tabs 02/06/23 03/25/23 Rx fluticasone propionate 50 1 spray intranasal BID #16 grams 02/28/23 03/25/23 Rx mcg/actuation nasal spray,suspension lorazepam 0.5 mg tablet (Ativan) 0.5 mg PO UD PRN anxiety #15 tabs 02/28/23 03/25/23 Rx hydrochlorothiazide 25 mg tablet 25 mg PO QAM #90 tabs 03/21/23 03/25/23 Rx qvxndsvbgq-lxwsezccbhjck-xrbxwdbp 1 tab PO Q6H PRN HEADACHES 03/25/23 03/25/23 History 50 mg-325 mg-40 mg tablet montelukast 10 mg tablet 10 mg PO QPM 03/25/23 03/25/23 History omeprazole 40 mg capsule,delayed 40 mg PO DAILY 03/25/23 03/25/23 History release Patient History Medical History (Updated 03/25/23 @ 01:12 by Ismael Tang MD) BPH loc w urin obs/LUTS Tendinitis of left rotator cuff Sensorineural hearing loss (SNHL) of left ear with restricted hearing of right ear Left-sided tinnitus Anxiety Burping FEELS PRESSURE ON LEFT SIDE AND BURP WHEN I SWALLOW, COMES AND GOES - REASON FOR UPCOMING PROCEDURE Tick bite hx of , no lymes disease Hx of hemorrhoids Gout hx x 1 - no re-occurence Hyperlipidemia Hypertension Obesity, Class II, BMI 35-39.9 Surgical History History of colonoscopy [place] teeth extracted History of hemorrhoidectomy Family History Mother Family history of cancer Cancer Father Family history of cancer Family history of stomach cancer Cancer Other Hypertension No family history of adverse response to anesthesia No family history of bleeding disorder No pertinent family history Denies family history of Ovarian cancer Prostate cancer Heart disease Myocardial infarction Breast cancer Colorectal cancer Stroke Asthma Social History Smoking Status: Unknown if ever smoked Second Hand Exposure: No; Do You Dip or Chew Tobacco: No; Hx Alcohol Use: No Hx Substance Use: No Preferred Language: Luxembourger Communication Ability: Effective 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 Beliefs That Will Affect Care: None marital status: Single Current Living Situation: Alone current occupational status: retired How many Children do You have: 0 Other Information That Helps Us Care for You: No Feels Safe at Home: Yes Safety Concerns: Feels Safe At This Time Childhood Exposure to Second-Hand Smoke: Yes Diet: regular caffeine: No Dental Care, Regularly: Yes Physical Activity Frequency: 1-2 Times per Week Seatbelt Use: always Sunscreen Use: Yes Assistive Devices: Glasses Review of Systems Review of Systems: REVIEW OF SYSTEMS: Constitutional: No fever, sweats or chills Eyes: No diplopia, no worsening or blurred vision ENT: normal hearing, no trouble swallowing Respiratory: (+) orthopnea, No cough, sputum, dyspnea at rest or on exertion Cardiovascular: (+) palpitations, syncope, dizziness, No active chest pain, tightness Abdomen: No pain, nausea, vomiting, diarrhea or constipation Musculoskeletal: (+) chronic shoulder and knee joint pain, No calf pain, swelling Neurologic: No weakness, numbness/tingling, or balance problems Psychiatric: No anxiety or depression Skin: No rash or itch Physical Exam Physical Exam: PHYSICAL EXAM: General: awake, alert, no apparent distress Head: Normocephalic, scars noted to right face, nose, left forehead ENT: PERRLA, EOMI, no pharyngeal exudate, mucous membranes moist Neuro: AAO x 3, speech clear and appropriate, strength intact bilaterally 5/5, sensation intact and equal all extremities and dermatomes, no pronator drift, no nystagmus Chest: equal rise and fall of the chest, no accessory muscle use, no heaves or thrills, Clear to auscultation, on room air, Cardiac: Regular rate and rhythm, telemetry reviewed- NSR currently, skin warm dry, cap refill <3 seconds, peripheral pulses +2 no JVD, no murmur, +1 edema to feet and just above ankle GI: NABS x 4 quadrants, soft, nontender to palpation, no rebound, guarding or tenderness : Spontaneously voiding, no pain, no CVA tenderness, Extremities: Normal inspection, no peripheral edema or erythema, calfs nontender to palpation Psych: Normal mood and affect Skin: no rash or erythema Results & Data Results & Data Vital Signs (Past 12 Hours) Vital Signs Temp Pulse Pulse Resp BP BP Pulse Ox 03/24/23 22:50 103 H 17 128/93 92 03/24/23 22:37 117 H 03/24/23 22:20 36 L 03/24/23 22:12 36.3 C L 36 L 18 142/70 H 95 O2 Del Method 03/24/23 22:50 Room Air 03/24/23 22:37 03/24/23 22:20 03/24/23 22:12 Room Air Laboratory Results Abnormal lab results 03/24/23 03/24/23 03/25/23 Range/Units 22:30 22:35 01:50 WBC 11.51 H (4.8-10.8) K/ul RDW Std Deviation 46.7 H (36.4-46.3) fL Neut # (Auto) 8.95 H (1.40-6.50) K/uL Will # (Auto) 0.90 H (0.11-0.59) K/uL Anion Gap 12 H (3-11) POC BUN 26 H (7-18) mg/dl Glucose 109 H (70-99(Fasting)) mg/dl POC Glucose (other) 111 H (70-99) mg/dl Alkaline Phosphatase 108 H (34-104) U/L Troponin I High Sens 38.2 H 64.2 H* D (0-20) pg/ml Diagnostic Findings Chest X-Ray 03/24/23 22:24 SINGLE VIEW CHEST CLINICAL HISTORY: Dysrhythmia. FINDINGS: 2 AP, portable, upright chest radiographs are compared to study dated 06/29/2022. The heart is enlarged noting atherosclerotic calcification of the thoracic aorta. The pulmonary vasculature is noncongested. There is chronic elevation of the right hemidiaphragm with mild bibasilar atelectasis. The lungs and pleural spaces are otherwise clear. No pneumothorax is seen. The skeletal structures are osteopenic. The bony thorax is grossly intact. IMPRESSION: Mild cardiomegaly with no active disease in the chest. ACT 112: Negative or not required by law. Electronically signed by: Elieser Schneider M.D. 03/24/2023 10:45 PM Medications Administered Discontinued Medications Atropine Sulfate (Atropine So4 1 Mg/Ml 1ml Vial) Confirm Administered Dose 1 mg .ROUTE .STK-MED ONE Stop: 03/24/23 22:29 Last Admin: 03/24/23 22:29 Dose: 0.5 mg Documented By: FELECIA Sodium Chloride (Nss) 500 mls @ 999 mls/hr IV .Q31M STA Stop: 03/24/23 22:53 Last Infusion: 03/25/23 00:10 Dose: Infused Documented By: Admin: 03/24/23 22:48 Dose: 999 mls/hr Documented By: ALXEA Thiamine HCl 200 mg/ Sodium (Chloride) 52 mls @ 210 mls/hr IV NOW STA Stop: 03/24/23 22:37 Last Infusion: 03/25/23 00:29 Dose: Infused Documented By: Admin: 03/25/23 00:09 Dose: 210 mls/hr Documented By: MARTHA Magnesium Sulfate/Dextrose (Magnesium Sulfate / D5w) 1 gm in 100 mls @ 100 mls/hr IV NOW STA Stop: 03/24/23 23:23 Last Infusion: 03/25/23 00:10 Dose: Infused Documented By: Admin: 03/24/23 22:32 Dose: 100 mls/hr Documented By: FELECIA Potassium Chloride (K Marin / Wtr) 10 meq in 100 mls @ 100 mls/hr IV Q1H KIRSTY Stop: 03/25/23 02:59 Last Admin: 03/25/23 02:51 Dose: 75 mls/hr Documented By: Infusion: 03/25/23 02:51 Dose: Infused Documented By: Admin: 03/25/23 01:11 Dose: 100 mls/hr Documented By: MARTHA ECG Additional Comments: Sinus tachycardia Left axis deviation RSR' or QR pattern in V1 suggests right ventricular conduction delay Inferior infarct (cited on or before 22-MAR-2023) Anterolateral infarct (cited on or before 22-MAR-2023) Abnormal ECG When compared with ECG of 24-MAR-2023 22:20, (unconfirmed) Significant changes have occurred. 24-MAR-2023 22:20:42 Marked sinus bradycardia with Premature atrial complexes with Aberrant conduction with ventricular escape complexes Left axis deviation Right bundle branch block Minimal voltage criteria for LVH, may be normal variant ( R in aVL ) Possible Lateral infarct (cited on or before 22-MAR-2023) Inferior infarct , age undetermined Abnormal ECG When compared with ECG of 22-MAR-2023 18:44, Significant changes have occurred Coding Level of Care Code 90993 CRITICAL CARE 1ST 30-74M Diagnoses Third degree heart block I44.2 Syncope R55 Syncope type: unspecified Abrasion of face S00.81XA Encounter type: initial encounter Anderson's esophagus with dysplasia K22.719 Anderson's esophagus type: with dysplasia of unspecified degree Impaired fasting glucose R73.01 RBBB (right bundle branch block) I45.10 (2) Syncope Syncope type: unspecified Qualified Code(s): R55 - Syncope and collapse (3) Abrasion of face Encounter type: initial encounter Qualified Code(s): S00.81XA - Abrasion of other part of head, initial encounter (4) Barretts esophagus Anderson's esophagus type: with dysplasia of unspecified degree Qualified Code(s): K22.719 - Anderson's esophagus with dysplasia, unspecified
[2023-03-25] MEDS: POTASSIUM CHLORIDE / WTR 10 MEQ/100 ML PLCT IV SCH ×2 (01:11→02:51)
[2023-03-25] MEDS ORDERED: AZELASTINE HCL 0.1% NASAL 200 SPRAYS/27,400 MCG BTL NAE PRN (04:00)
[2023-03-25 04:31] LABS: Basophils # (auto) 0.05 K/uL (0.00-0.20); Basophils % (auto) 0.6 %; Eosinophils # (auto) 0.05 K/uL (0.00-0.50); Eosinophils % (auto) 0.6 %; Hematocrit (blood only) 39.6 % (42.0-52.0); Hemoglobin 13.4 g/dl (14.0-18.0); Immature Granulocytes # (auto) 0.02 K/uL (0.01-0.20); Immature Granulocytes % (auto) 0.3 %; Lymphocytes % (auto) 25.6 %; Mean Corpuscular Hemoglobin 30.7 pg (25.0-34.0); Mean Corpuscular Hgb Conc 33.8 g/dL (32.0-36.0); Mean Corpuscular Volume 90.8 fL (80.0-100.0); Mean Platelet Volume 8.8 fL (9.4-12.4); Monocytes # (auto) 0.75 K/uL (0.11-0.59); Monocytes % (auto) 9.6 %; Neutrophils # (auto) 4.95 K/uL (1.40-6.50); Neutrophils % (auto) 63.3 %; Platelet Count 188 K/uL (130-400); RDW Coefficient of Variation 13.8 % (11.5-14.5); RDW Standard Deviation 46.2 fL (36.4-46.3); Red Blood Count 4.36 M/uL (4.70-6.10); White Blood Count 7.82 K/ul (4.8-10.8)
[2023-03-25 04:46] LABS: Albumin Globulin Ratio 1.4 (0.9-2); Albumin Level 3.7 gm/dl (3.4-5.0); BUN Creatinine Ratio 18.9 (10-20); Calcium 8.8 mg/dl (8.6-10.3); Creatinine Clr Calc Pharmacy 77.1 ml/min; Est GFR (African American) 82.6 ml/min; Est GFR (Non-African American) 71.3 ml/min; Globulin 2.7 gm/dl (2.5-4.0); Potassium 3.9 mmol/L (3.5-5.1); Total Protein 6.4 gm/dl (6.0-8.3)
[2023-03-25 04:57] LABS: Troponin I High Sensitivity 50.1 pg/ml (0-20)
[2023-03-25] MEDS ORDERED: NSS + 20MEQ KCL 20 MEQ/1,000 ML BAG IV SCH (05:15)
--- NOTE | 2023-03-25 07:45 | Critical Care Consultation ---
Date of Consultation March 25, 2023 History of Present Illness Attending Physician: Rose Alarcon MD Allergies Allergy/AdvReac Type Severity Reaction Status Date / Time amoxicillin Allergy Intermediate Rash Verified 03/25/23 00:12 animal dander Allergy Mild Sneezing Verified 03/25/23 00:12 house dust Allergy Mild Sneezing Verified 03/25/23 00:12 mold Allergy Mild Sneezing Verified 03/25/23 00:12 Penicillins Allergy Mild Rash Verified 03/25/23 00:12 pollen extracts Allergy Mild Sneezing Verified 03/25/23 00:12 Home Medications Medication Instructions Recorded Confirmed Type Allergy Shots 1 dose subcut UD PRN allergies 03/15/21 03/25/23 History azelastine 137 mcg (0.1 %) nasal 1 spray intranasal UD PRN Nasal 03/15/2109/10 History spray aerosol Congestion baclofen 10 mg tablet 10 mg PO UD PRN tension 03/15/21 03/25/23 History bupropion HCl 150 mg 24 hr tablet, 150 mg PO QAM #30 tabs 10/24/22 03/25/23 Rx extended release (Wellbutrin XL) tamsulosin 0.4 mg capsule (Flomax) 0.4 mg PO QPM #90 caps 11/07/22 03/25/23 Rx escitalopram oxalate 20 mg tablet 20 mg PO QAM #90 tabs 12/15/22 03/25/23 Rx (Lexapro) irbesartan 150 mg tablet 150 mg PO QPM #90 tabs 12/15/22 03/25/23 Rx levocetirizine 5 mg tablet 5 mg PO DAILY #30 tabs 02/01/23 03/25/23 Rx atorvastatin 80 mg tablet 80 mg PO QPM #90 tabs 02/06/23 03/25/23 Rx fluticasone propionate 50 1 spray intranasal BID #16 grams 02/28/23 03/25/23 Rx mcg/actuation nasal spray,suspension lorazepam 0.5 mg tablet (Ativan) 0.5 mg PO UD PRN anxiety #15 tabs 02/28/23 03/25/23 Rx hydrochlorothiazide 25 mg tablet 25 mg PO QAM #90 tabs 03/21/23 03/25/23 Rx ibgoyegsiw-xphdvyxbjqfng-eieaoxlw 1 tab PO Q6H PRN HEADACHES 03/25/23 03/25/23 History 50 mg-325 mg-40 mg tablet montelukast 10 mg tablet 10 mg PO QPM 03/25/23 03/25/23 History omeprazole 40 mg capsule,delayed 40 mg PO DAILY 03/25/23 03/25/23 History release Patient History Medical History (Updated 03/25/23 @ 01:12 by Ismael Tang MD) BPH loc w urin obs/LUTS Tendinitis of left rotator cuff Sensorineural hearing loss (SNHL) of left ear with restricted hearing of right ear Left-sided tinnitus Anxiety Burping FEELS PRESSURE ON LEFT SIDE AND BURP WHEN I SWALLOW, COMES AND GOES - REASON FOR UPCOMING PROCEDURE Tick bite hx of , no lymes disease Hx of hemorrhoids Gout hx x 1 - no re-occurence Hyperlipidemia Hypertension Obesity, Class II, BMI 35-39.9 Surgical History History of colonoscopy [place] teeth extracted History of hemorrhoidectomy Family History Mother Family history of cancer Cancer Father Family history of cancer Family history of stomach cancer Cancer Other Hypertension No family history of adverse response to anesthesia No family history of bleeding disorder No pertinent family history Denies family history of Ovarian cancer Prostate cancer Heart disease Myocardial infarction Breast cancer Colorectal cancer Stroke Asthma Social History Smoking Status: Unknown if ever smoked Second Hand Exposure: No; Do You Dip or Chew Tobacco: No; Hx Alcohol Use: No Hx Substance Use: No Preferred Language: Upper Sorbian Communication Ability: Effective 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 Beliefs That Will Affect Care: None marital status: Single Current Living Situation: Alone current occupational status: retired How many Children do You have: 0 Other Information That Helps Us Care for You: No Feels Safe at Home: Yes Safety Concerns: Feels Safe At This Time Childhood Exposure to Second-Hand Smoke: Yes Diet: regular caffeine: No Dental Care, Regularly: Yes Physical Activity Frequency: 1-2 Times per Week Seatbelt Use: always Sunscreen Use: Yes Assistive Devices: Glasses Results & Data Results & Data Vital Signs (Past 12 Hours) Vital Signs Temp Pulse Pulse Resp BP BP BP 03/25/23 06:00 36.8 C 70 16 159/92 H 03/25/23 05:00 37.3 C 68 16 171/93 H 03/25/23 04:44 73 03/25/23 04:09 69 17 03/25/23 04:04 37.0 C 69 16 170/91 H 03/25/23 03:15 36.7 C 71 15 136/80 03/25/23 03:00 131/87 03/25/23 03:00 74 17 03/25/23 02:45 75 18 03/25/23 02:45 136/79 03/25/23 02:30 140/86 03/25/23 02:30 74 17 03/25/23 02:15 74 17 03/25/23 02:15 135/82 03/25/23 02:00 138/82 03/25/23 02:00 72 16 03/25/23 01:45 140/84 03/25/23 01:45 75 17 03/25/23 01:30 138/88 03/25/23 01:30 76 17 03/25/23 01:15 78 19 03/25/23 01:15 143/94 H 03/25/23 01:00 156/92 H 03/25/23 01:00 82 14 03/25/23 00:45 83 20 03/25/23 00:45 145/98 H 03/25/23 00:30 138/83 03/25/23 00:30 86 19 03/25/23 00:15 90 23 03/25/23 00:15 140/91 03/25/23 00:00 134/93 03/25/23 00:00 92 H 17 03/24/23 23:45 92 H 16 03/24/23 23:45 138/88 03/24/23 23:30 149/92 H 03/24/23 23:30 94 H 16 03/24/23 23:15 98 H 16 03/24/23 23:15 143/87 H 03/24/23 23:00 105 H 13 03/24/23 23:00 133/90 03/24/23 22:50 103 H 17 128/93 03/24/23 22:45 128/93 03/24/23 22:45 105 H 13 03/24/23 22:37 117 H 03/24/23 22:33 113 H 19 03/24/23 22:33 145/96 H 03/24/23 22:30 45 L 23 03/24/23 22:20 39 L 16 03/24/23 22:20 36 L 03/24/23 22:12 36.3 C L 36 L 18 142/70 H Pulse Ox O2 Del Method 03/25/23 06:00 95 03/25/23 05:00 92 Room Air 03/25/23 04:44 03/25/23 04:09 92 03/25/23 04:04 92 Room Air 03/25/23 03:15 93 Room Air 03/25/23 03:00 03/25/23 03:00 92 03/25/23 02:45 92 03/25/23 02:45 03/25/23 02:30 03/25/23 02:30 94 03/25/23 02:15 94 03/25/23 02:15 03/25/23 02:00 03/25/23 02:00 93 03/25/23 01:45 03/25/23 01:45 93 03/25/23 01:30 03/25/23 01:30 93 03/25/23 01:15 93 03/25/23 01:15 03/25/23 01:00 03/25/23 01:00 92 03/25/23 00:45 92 03/25/23 00:45 03/25/23 00:30 03/25/23 00:30 94 03/25/23 00:15 95 03/25/23 00:15 03/25/23 00:00 03/25/23 00:00 93 03/24/23 23:45 95 03/24/23 23:45 03/24/23 23:30 03/24/23 23:30 94 03/24/23 23:15 92 03/24/23 23:15 03/24/23 23:00 94 03/24/23 23:00 03/24/23 22:50 92 Room Air 03/24/23 22:45 03/24/23 22:45 95 03/24/23 22:37 03/24/23 22:33 93 03/24/23 22:33 03/24/23 22:30 03/24/23 22:20 94 03/24/23 22:20 03/24/23 22:12 95 Room Air
[2023-03-25] MEDS: ICU Protocol for HYPERglycemia SCH ×4 (08:36→20:53)
[2023-03-25] MEDS: FLUTICASONE PROPIONATE NA SPR 16 GM BTL NAE SCH ×2 (08:37→20:45)
[2023-03-25] MEDS: PANTOprazole 40 MG TAB PO SCH (08:37)
--- NOTE | 2023-03-25 08:57 | Critical Care Progress Note ---
Date of Service March 25, 2023 Assessment & Plan (1) Third degree heart block: (2) Syncope: (3) Barretts esophagus: (4) RBBB (right bundle branch block): Plan (1) Third degree heart block: (2) Syncope: (3) Abrasion of face: (4) Anderson's esophagus: (5) Impaired fasting glucose: (6) RBBB (right bundle branch block): Plan Reason Critically Ill: 67 YOM with history of "spells", however did have syncope like activity on 22 Mar 2023 and presented today with 3 blurry vision episodes associated with palpitations and dizziness. Did have an ECG captured today which showed 3rd degree AV block. Patient received Atropine x1mg in the EMD with resolution of rhythm. Brought to the ICU for monitoring of rhythm and chronotropic medications if needed. Neuro - Headaches, Syncope with head strike CAM ICU: Negative - Patient gets chronic headaches which he attributes to sinus and allergies and is followed by allergy - Current headache is consistent with headaches that he gets usually- he is without neurological changes, vision changes, and without nausea/vomiting - Follow neurological exams for DASH following his head strike a few days ago - Syncope see below Cardiac - Syncope, 3rd degree AV block, HTN, HLD - Resolved following Atropine- follow telemetry overnight- Lyme negative, TSH normal range - Continues without chest pain; ECG did not show acute STEMI - Cardiology consultation appreciated for further risk stratification work up and evaluation for PPM - ECHO: Normal l. ventricular size, systolic function. EF 60-65%. Mild concentric l. ventricular hypertrophy. No significant valvular abnormalities. Cardiology not recommending temporary pacemaker at this time but recommends permanent pacemaker placement on Monday if patient can be scheduled for it. - Manage any recurrent bradycardic and/or 3rd deg AV block Sx with atropine in meantime - Continue to trend : (50 <-- 64.2 <-- 38.2) --> resolved - Continue ARB, Continue Statin Respiratory - No acute needs GI - GERD with Anderson's Esophagus - Continue PPI - Diet, heart-healthy RENAL/LYTES - No acute needs - ICU electrolyte protocol - No acute needs ENDO - Pre-diabetic - ICU hyperglycemic protocol HEME - No acute needs ID - No acute concerns for infectious etiology at this time LINES/IV ACCESS - PIV Continue use of these lines DVT PROPHYLAXIS - SCDS, Lovenox 40mg SQ daily DISPO: ICU until hemodynamics proven stable Admission and Anticipated Discharge Date Admission Date: March 25, 2023 Subjective Patient is a 67 yo M w/ a PMHx of DM II, GERD, RBBB, HTN, 1st degree AV block, BPH, Allergic Rhinitis, Sleep disorder- delayed sleep phase who presented to [facility] ED with an episode of syncope on 03/22, with negative workup at that time, and a recurrent episode of near syncope yesterday evening. He was found to be in third-degree heart block, given atropine IV from the ED, and was then admitted to the ICU. This morning the patient feels noticeably better and has not had a recurrence of of one of his "spells" since the administration of atropine, IV last night. He does feel a little fatigued secondary to reduced sleep last night but overall without chest pain or palpitations, no N/V/D or abdominal pain, no current chandler rtness of breath while laying supine, no lightheadedness or vision changes--blurriness of vision, changed visual acuity, etc. Review of Systems Constitutional: + fatigue; no fever and no chills Eyes: no blind spots and no worsening vision Respiratory: no cough and no dyspnea Cardiovascular: no chest pain, no palpitations and no lightheadedness (nothing at rest since last night) Gastrointestinal: no abdominal pain, no nausea, no vomiting and no diarrhea/loose stools Genitourinary: no dysuria or no urinary frequency Neurologic: no tingling and no numbness Physical Exam Constitutional: WD/WN, vitals as above Respiratory: normal respiratory effort, lungs clear to auscultation Cardiovascular: RRR, no murmur, no edema Gastrointestinal (Abdomen): normal bowel sounds, soft, nontender, no hepatosplenomegaly Psychiatric: A+Ox3, euthymic affect Results & Data Results & Data Vital Signs (Past 12 Hours) Vital Signs Temp Pulse Pulse Resp BP BP BP 03/25/23 06:00 36.8 C 70 16 159/92 H 03/25/23 05:00 37.3 C 68 16 171/93 H 03/25/23 04:44 73 03/25/23 04:09 69 17 03/25/23 04:04 37.0 C 69 16 170/91 H 03/25/23 03:15 36.7 C 71 15 136/80 03/25/23 03:00 131/87 03/25/23 03:00 74 17 03/25/23 02:45 75 18 03/25/23 02:45 136/79 03/25/23 02:30 140/86 03/25/23 02:30 74 17 03/25/23 02:15 74 17 03/25/23 02:15 135/82 03/25/23 02:00 138/82 03/25/23 02:00 72 16 03/25/23 01:45 140/84 03/25/23 01:45 75 17 03/25/23 01:30 138/88 03/25/23 01:30 76 17 03/25/23 01:15 78 19 03/25/23 01:15 143/94 H 03/25/23 01:00 156/92 H 03/25/23 01:00 82 14 03/25/23 00:45 83 20 03/25/23 00:45 145/98 H 03/25/23 00:30 138/83 03/25/23 00:30 86 19 03/25/23 00:15 90 23 03/25/23 00:15 140/91 03/25/23 00:00 134/93 03/25/23 00:00 92 H 17 03/24/23 23:45 92 H 16 03/24/23 23:45 138/88 03/24/23 23:30 149/92 H 03/24/23 23:30 94 H 16 03/24/23 23:15 98 H 16 03/24/23 23:15 143/87 H 03/24/23 23:00 105 H 13 03/24/23 23:00 133/90 03/24/23 22:50 103 H 17 128/93 03/24/23 22:45 128/93 03/24/23 22:45 105 H 13 03/24/23 22:37 117 H 03/24/23 22:33 113 H 19 03/24/23 22:33 145/96 H 03/24/23 22:30 45 L 23 03/24/23 22:20 39 L 16 03/24/23 22:20 36 L 03/24/23 22:12 36.3 C L 36 L 18 142/70 H Pulse Ox O2 Del Method 03/25/23 06:00 95 03/25/23 05:00 92 Room Air 03/25/23 04:44 03/25/23 04:09 92 03/25/23 04:04 92 Room Air 03/25/23 03:15 93 Room Air 03/25/23 03:00 03/25/23 03:00 92 03/25/23 02:45 92 03/25/23 02:45 03/25/23 02:30 03/25/23 02:30 94 03/25/23 02:15 94 03/25/23 02:15 03/25/23 02:00 03/25/23 02:00 93 03/25/23 01:45 03/25/23 01:45 93 03/25/23 01:30 03/25/23 01:30 93 03/25/23 01:15 93 03/25/23 01:15 03/25/23 01:00 03/25/23 01:00 92 03/25/23 00:45 92 03/25/23 00:45 03/25/23 00:30 03/25/23 00:30 94 03/25/23 00:15 95 03/25/23 00:15 03/25/23 00:00 03/25/23 00:00 93 03/24/23 23:45 95 03/24/23 23:45 03/24/23 23:30 03/24/23 23:30 94 03/24/23 23:15 92 03/24/23 23:15 03/24/23 23:00 94 03/24/23 23:00 03/24/23 22:50 92 Room Air 03/24/23 22:45 03/24/23 22:45 95 03/24/23 22:37 03/24/23 22:33 93 03/24/23 22:33 03/24/23 22:30 03/24/23 22:20 94 03/24/23 22:20 03/24/23 22:12 95 Room Air (2) Syncope Syncope type: unspecified Qualified Code(s): R55 - Syncope and collapse (3) Barretts esophagus Anderson's esophagus type: with dysplasia of unspecified degree Qualified Code(s): K22.719 - Anderson's esophagus with dysplasia, unspecified
--- NOTE | 2023-03-25 10:26 | Cardiology Consultation ---
Date of Consultation March 25, 2023 Assessment & Plan (1) Third degree heart block: (2) Syncope: (3) Hypertension: (4) Elevated troponin: Plan ASSESSMENT/PLAN: 1. Third-degree AV block: Noted on initial ECG with recent recurrent syncope and near syncope. Recommend permanent pacemaker. Currently conducting across his AV node and therefore pacemaker is not urgent. No need for temporary pacemaker at this time but could pursue if needed urgently before permanent pacemaker can be placed. Keep pacer pads in place. Atropine at the bedside. Recommend bedrest to avoid injury if it should recur. N.p.o. after midnight tomorrow for possible pacemaker on Monday if electrophysiology is available. 2. Syncope: Plan as above. 3. Hypertension: Blood pressure has mostly been hypertensive. Asymptomatic. Avoid AV nilda blocking agents. Can continue ARB and if necessary, can titrate therapy if needed but careful to avoid hypotension. 4. Elevated troponin: He did not present with acute coronary syndrome. Likely demand ischemia. 5. Disposition: Cardiology will continue to follow. Plan discussed with critical care team and Dr. Alarcon of the primary hospitalist service. Patient presentation and plan of care communicated with electrophysiology. Highly complex medical issues. Thank you for allowing me to participate in the care of your patient. Please call for any other questions or concerns. Sincerely, René Lyman M.D. History of Present Illness Reason for Consultation: complete heart block Requesting Physician: Rose Alarcon MD Attending Physician: Rose Alarcon MD History of Present Illness Mr. Gifford is a pleasant 67-year-old gentleman with a history significant for syncope, hypertension, and dyslipidemia. His primary tube laser operator is Dr. Alberts (last seen on 05/18/2020). He has a history of syncope, believing that it started first 8 years ago but was very sporadic and infrequent. He has had 3 episodes of syncope since November 2022. 1 occurred in November, December, and then March 2023. All occurred while upright and walking and all were unwitnessed. He does not recall any specific warning symptoms and then when he would wake up, he would continue to not feel well especially for a few minutes but sometimes could last for a few hours and he would feel drained and sluggish. He came to the emergency department on 03/22/2023 after his most recent episode of syncope and his ECG at that time demonstrated sinus rhythm with first-degree AV block, RBBB and LAFB. He was discharged home. He represented on 03/24/2023 for near syncope and acute shortness of breath while sitting, lightheadedness, and tightness across his chest. He had several episodes on 03/24/2023 before he presented to the emergency department. In the emergency department, his ECG demonstrated sinus tachycardia with complete heart block and ventricular escape rhythm near 48 bpm. In the ER, he was noted on telemetry to have heart rates reportedly in the 20s to 30s. He was given atropine and was shortly thereafter noted to be in sinus rhythm with first- degree AV block and improved ventricular rates. While here, he has not had any further syncope or near syncope. He has not required further atropine. He has been less active in general more recently. He has occasional dyspnea on exertion with more strenuous activities. He has not noted any exertional chest discomfort other than occasional chest discomfort during such episodes. His syncopal and near syncopal episodes have increased in frequency as of late. He denies fevers, chills, nausea, vomiting, diarrhea, palpitations, edema. Review of systems: As above. Review of systems otherwise negative/unremarkable. Family history: No known premature CAD. Social history: Denies smoking or drug abuse. Has not had any alcohol consumption for greater than 1 year. He lives alone. Has not been . No children. Worked at [employer]. Retired. 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 Allergies Allergy/AdvReac Type Severity Reaction Status Date / Time amoxicillin Allergy Intermediate Rash Verified 03/25/23 00:12 animal dander Allergy Mild Sneezing Verified 03/25/23 00:12 house dust Allergy Mild Sneezing Verified 03/25/23 00:12 mold Allergy Mild Sneezing Verified 03/25/23 00:12 Penicillins Allergy Mild Rash Verified 03/25/23 00:12 pollen extracts Allergy Mild Sneezing Verified 03/25/23 00:12 Home Medications Medication Instructions Recorded Confirmed Type Allergy Shots 1 dose subcut UD PRN allergies 03/15/21 03/25/23 History azelastine 137 mcg (0.1 %) nasal 1 spray intranasal UD PRN Nasal 03/15/21 History spray aerosol Congestion baclofen 10 mg tablet 10 mg PO UD PRN tension 03/15/21 03/25/23 History bupropion HCl 150 mg 24 hr tablet, 150 mg PO QAM #30 tabs 10/24/22 03/25/23 Rx extended release (Wellbutrin XL) tamsulosin 0.4 mg capsule (Flomax) 0.4 mg PO QPM #90 caps 11/07/22 03/25/23 Rx escitalopram oxalate 20 mg tablet 20 mg PO QAM #90 tabs 12/15/22 03/25/23 Rx (Lexapro) irbesartan 150 mg tablet 150 mg PO QPM #90 tabs 12/15/22 03/25/23 Rx levocetirizine 5 mg tablet 5 mg PO DAILY #30 tabs 02/01/23 03/25/23 Rx atorvastatin 80 mg tablet 80 mg PO QPM #90 tabs 02/06/23 03/25/23 Rx fluticasone propionate 50 1 spray intranasal BID #16 grams 02/28/23 03/25/23 Rx mcg/actuation nasal spray,suspension lorazepam 0.5 mg tablet (Ativan) 0.5 mg PO UD PRN anxiety #15 tabs 02/28/23 03/25/23 Rx hydrochlorothiazide 25 mg tablet 25 mg PO QAM #90 tabs 03/21/23 03/25/23 Rx pfqoyfmiqp-[id number]-ondtrmqq 1 tab PO Q6H PRN HEADACHES 03/25/23 03/25/23 History 50 mg-325 mg-40 mg tablet montelukast 10 mg tablet 10 mg PO QPM 03/25/23 03/25/23 History omeprazole 40 mg capsule,delayed 40 mg PO DAILY 03/25/23 03/25/23 History release Patient History Medical History BPH loc w urin obs/LUTS Tendinitis of left rotator cuff Sensorineural hearing loss (SNHL) of left ear with restricted hearing of right ear Left-sided tinnitus Anxiety Burping FEELS PRESSURE ON LEFT SIDE AND BURP WHEN I SWALLOW, COMES AND GOES - REASON FOR UPCOMING PROCEDURE Tick bite hx of , no lymes disease Hx of hemorrhoids Gout hx x 1 - no re-occurence Hyperlipidemia Hypertension Obesity, Class II, BMI 35-39.9 Surgical History History of colonoscopy [place] teeth extracted History of hemorrhoidectomy Family History Mother Family history of cancer Cancer Father Family history of cancer Family history of stomach cancer Cancer Other Hypertension No family history of adverse response to anesthesia No family history of bleeding disorder No pertinent family history Denies family history of Ovarian cancer Prostate cancer Heart disease Myocardial infarction Breast cancer Colorectal cancer Stroke Asthma Social History Smoking Status: Unknown if ever smoked Second Hand Exposure: No; Do You Dip or Chew Tobacco: No; Hx Alcohol Use: No Hx Substance Use: No Preferred Language: Bengali Communication Ability: Effective Program Research Specialist Required: No Beliefs That Will Affect Care: None marital status: Single Current Living Situation: Alone current occupational status: retired How many Children do You have: 0 Other Information That Helps Us Care for You: No Feels Safe at Home: Yes Safety Concerns: Feels Safe At This Time Childhood Exposure to Second-Hand Smoke: Yes Diet: regular caffeine: No Dental Care, Regularly: Yes Physical Activity Frequency: 1-2 Times per Week Seatbelt Use: always Sunscreen Use: Yes Assistive Devices: Glasses Physical Exam Physical Exam: Gen.: No acute distress. Alert and oriented. HEENT: Anicteric sclera. Neck: No JVD. No bruits. Normal carotid upstrokes bilaterally. Cardiac: No ventricular heave. Regular. Normal S1-S2. No murmurs, rubs, or gallops. Pulmonary: Clear to auscultation bilaterally without wheezes, rales, or rhonchi. Abdomen: Soft, nontender, nondistended, with normoactive bowel sounds. No bruits noted. Extremities: 2+ radial pulses bilaterally. 2+ posterior tibialis pulses bilaterally. No edema or cyanosis. Results & Data Vital Signs (Past 12 Hours) Vital Signs Temp Pulse Pulse Resp BP BP BP 03/25/23 10:00 65 17 03/25/23 10:00 153/75 H 03/25/23 09:30 67 17 03/25/23 09:01 145/79 H 03/25/23 09:01 69 16 03/25/23 09:00 67 18 03/25/23 08:30 66 20 03/25/23 08:01 173/85 H 03/25/23 08:01 65 26 H 03/25/23 08:00 03/25/23 08:00 65 03/25/23 08:00 67 14 03/25/23 07:30 68 14 03/25/23 07:00 36.7 C 03/25/23 07:00 123/84 03/25/23 07:00 70 15 03/25/23 06:30 72 19 03/25/23 06:00 36.8 C 70 16 159/92 H 03/25/23 05:00 37.3 C 68 16 171/93 H 03/25/23 04:44 73 03/25/23 04:09 69 17 03/25/23 04:04 37.0 C 69 16 170/91 H 03/25/23 03:15 36.7 C 71 15 136/80 03/25/23 03:00 131/87 03/25/23 03:00 74 17 03/25/23 02:45 75 18 03/25/23 02:45 136/79 03/25/23 02:30 140/86 03/25/23 02:30 74 17 03/25/23 02:15 74 17 03/25/23 02:15 135/82 03/25/23 02:00 138/82 03/25/23 02:00 72 16 03/25/23 01:45 140/84 03/25/23 01:45 75 17 03/25/23 01:30 138/88 03/25/23 01:30 76 17 03/25/23 01:15 78 19 03/25/23 01:15 143/94 H 03/25/23 01:00 156/92 H 03/25/23 01:00 82 14 03/25/23 00:45 83 20 03/25/23 00:45 145/98 H 03/25/23 00:30 138/83 03/25/23 00:30 86 19 03/25/23 00:15 90 23 03/25/23 00:15 140/91 03/25/23 00:00 134/93 03/25/23 00:00 92 H 17 03/24/23 23:45 92 H 16 03/24/23 23:45 138/88 01/05/24 23:30 149/92 H 03/24/23 23:30 94 H 16 03/24/23 23:15 98 H 16 03/24/23 23:15 143/87 H 03/24/23 23:00 105 H 13 03/24/23 23:00 133/90 03/24/23 22:50 103 H 17 128/93 03/24/23 22:45 128/93 03/24/23 22:45 105 H 13 03/24/23 22:37 117 H 03/24/23 22:33 113 H 19 03/24/23 22:33 145/96 H 03/24/23 22:30 45 L 23 Pulse Ox O2 Del Method 03/25/23 10:00 92 03/25/23 10:00 03/25/23 09:30 92 03/25/23 09:01 03/25/23 09:01 92 03/25/23 09:00 92 03/25/23 08:30 94 03/25/23 08:01 03/25/23 08:01 95 03/25/23 08:00 Room Air 03/25/23 08:00 03/25/23 08:00 95 03/25/23 07:30 91 03/25/23 07:00 03/25/23 07:00 03/25/23 07:00 91 03/25/23 06:30 93 03/25/23 06:00 95 03/25/23 05:00 92 Room Air 03/25/23 04:44 03/25/23 04:09 92 03/25/23 04:04 92 Room Air 03/25/23 03:15 93 Room Air 03/25/23 03:00 03/25/23 03:00 92 03/25/23 02:45 92 03/25/23 02:45 03/25/23 02:30 03/25/23 02:30 94 03/25/23 02:15 94 03/25/23 02:15 03/25/23 02:00 03/25/23 02:00 93 03/25/23 01:45 03/25/23 01:45 93 03/25/23 01:30 03/25/23 01:30 93 03/25/23 01:15 93 03/25/23 01:15 03/25/23 01:00 03/25/23 01:00 92 03/25/23 00:45 92 03/25/23 00:45 03/25/23 00:30 03/25/23 00:30 94 03/25/23 00:15 95 03/25/23 00:15 03/25/23 00:00 03/25/23 00:00 93 03/24/23 23:45 95 03/24/23 23:45 03/24/23 23:30 03/24/23 23:30 94 03/24/23 23:15 92 03/24/23 23:15 03/24/23 23:00 94 03/24/23 23:00 03/24/23 22:50 92 Room Air 03/24/23 22:45 03/24/23 22:45 95 03/24/23 22:37 03/24/23 22:33 93 03/24/23 22:33 03/24/23 22:30 Laboratory Results Laboratory Results - last 24 hr 03/24/23 03/24/23 03/24/23 22:30 22:35 23:07 WBC 11.51 H RBC 4.88 Hgb 14.7 POC Hgb 15.3 Hct 45.2 POC Hct 45 MCV 92.6 MCH 30.1 MCHC 32.5 RDW Std Deviation 46.7 H RDW Coeff of Marcus 13.8 Plt Count 212 MPV 9.4 Immature Gran % (Auto) 0.3 Neut % (Auto) 77.8 Lymph % (Auto) 13.4 [place] % (Auto) 7.8 Eos % (Auto) 0.3 Baso % (Auto) 0.4 Neut # (Auto) 8.95 H Lymph # (Auto) 1.54 [place] # (Auto) 0.90 H Eos # (Auto) 0.03 Baso # (Auto) 0.05 Immature Gran # (Auto) 0.04 PT 10.6 INR 1.0 APTT 21 PTT Ratio 0.7 POC Sodium 139 Sodium 138 POC Potassium 4.5 Potassium 3.6 POC Chloride 103 Chloride 102 Carbon Dioxide 24 POC Total CO2 26 Anion Gap 12 H POC Anion Gap 16.0 POC BUN 26 H BUN 22 Creatinine 1.19 POC Creatinine 1.3 Est Cr Clr Drug Dosing 69.5 Est GFR ( Amer) 71.8 Est GFR (Non-Af Amer) 62.0 BUN/Creatinine Ratio 18.5 Glucose 109 H POC Glucose (other) 111 H Calcium 9.9 POC Ioniz Calcium Chandler 1.12 Magnesium 2.1 Total Bilirubin 0.9 AST 20 ALT 23 Alkaline Phosphatase 108 H Troponin I High Sens 38.2 H Total Protein 7.4 Albumin 4.4 Globulin 3.0 Albumin/Globulin Ratio 1.5 TSH 1.520 Nasal Screen MRSA (PCR) Ethyl Alcohol mg/dL < 10.0 Lyme Disease IgG Ab Negative Lyme Disease IgM Ab Negative 03/25/23 03/25/23 03/25/23 01:50 04:16 09:46 WBC 7.82 RBC 4.36 L Hgb 13.4 L POC Hgb Hct 39.6 L POC Hct MCV 90.8 MCH 30.7 MCHC 33.8 RDW Std Deviation 46.2 RDW Coeff of Marcus 13.8 Plt Count 188 MPV 8.8 L Immature Gran % (Auto) 0.3 Neut % (Auto) 63.3 Lymph % (Auto) 25.6 [place] % (Auto) 9.6 Eos % (Auto) 0.6 Baso % (Auto) 0.6 Neut # (Auto) 4.95 Lymph # (Auto) 2.00 [place] # (Auto) 0.75 H Eos # (Auto) 0.05 Baso # (Auto) 0.05 Immature Gran # (Auto) 0.02 PT INR APTT PTT Ratio POC Sodium Sodium 138 POC Potassium Potassium 3.9 POC Chloride Chloride 104 Carbon Dioxide 24 POC Total CO2 Anion Gap 10 POC Anion Gap POC BUN BUN 20 Creatinine 1.06 POC Creatinine Est Cr Clr Drug Dosing 77.1 Est GFR ( Amer) 82.6 Est GFR (Non-Af Amer) 71.3 BUN/Creatinine Ratio 18.9 Glucose 89 POC Glucose (other) Calcium 8.8 POC Ioniz Calcium Chandler Magnesium Total Bilirubin 1.0 AST 18 ALT 19 Alkaline Phosphatase 91 Troponin I High Sens 64.2 H* D 50.1 H* D Total Protein 6.4 Albumin 3.7 Globulin 2.7 Albumin/Globulin Ratio 1.4 TSH Nasal Screen MRSA (PCR) Pending Ethyl Alcohol mg/dL Lyme Disease IgG Ab Lyme Disease IgM Ab Diagnostic Findings ECHO 03/25/23: 1. Normal left ventricular size and systolic function. EF 60-65%. No regional wall motion abnormalities. Moderate concentric left ventricular hypertrophy. 2. Mildly dilated right ventricle with normal systolic function. 3. No significant valvular abnormalities. 4. Technically difficult study, enhanced with IV Definity. On 03/25/2023, chart, history and physical report, emergency room visits, prior outpatient cardiology notes reviewed. ECGs reviewed as noted above in HPI. Telemetry personally reviewed: Sinus rhythm with first-degree AV block since in the ICU. No significant pause. Critical care progress note reviewed. Labs reviewed and notable for stable hemoglobin, stable renal function, normal potassium, normal magnesium, mildly elevated high-sensitivity troponin, peaking at 64, normal TSH, negative Lyme. Chest x-ray 03/24/2023: No active disease in the chest per radiology. CT head 03/22/2023: No hemorrhage or acute stroke. Medications Administered Current Inpatient Medications Atorvastatin Calcium (Atorvastatin 40 Mg Tab) 80 mg PO QPM KIRSTY Stop: 04/24/23 20:59 Azelastine HCl (Azelastine Hcl 0.1% Nasal 200 Sprays/27,400 Mcg Btl) 1 sprays NATASHA HS PRN PRN Reason: Nasal Congestion Stop: 04/24/23 03:59 Bupropion HCl (Bupropion Xl 150 Mg Tabcr) 150 mg PO QAM KIRSTY Stop: 04/24/23 08:59 Escitalopram Oxalate (Escitalopram Oxalate 20 Mg Tab) 20 mg PO QAM KIRSTY Stop: 04/24/23 08:59 Fluticasone Propionate (Fluticasone Propionate Na Spr 16 Gm Btl) 1 sprays NATASHA BID KIRSTY Stop: 04/24/23 08:59 Last Admin: 03/25/23 08:37 Dose: 1 sprays Potassium Chloride/Sodium Chloride (Normal Saline W/20 Meq Kcl) 20 meq in 1,000 mls @ 100 mls/hr IV .Q10H KIRSTY Stop: 03/25/23 15:14 Last Admin: 03/25/23 05:59 Dose: 100 mls/hr Losartan Potassium (Losartan Potassium 50 Mg Tab) 50 mg PO QPM KIRSTY Stop: 04/24/23 20:59 Miscellaneous (Icu Protocol For Hyperglycemia) 1 each N/A ACHS KIRSTY Stop: 03/27/23 07:29 Last Admin: 03/25/23 08:36 Dose: 1 each Pantoprazole Sodium (Pantoprazole 40 Mg Tab) 40 mg PO DAILY KIRSTY Stop: 04/24/23 08:59 Last Admin: 03/25/23 08:37 Dose: 40 mg Tamsulosin HCl (Tamsulosin Hcl 0.4 Mg Cap) 0.4 mg PO QPM [facility] Stop: 04/24/23 20:59 PG Care Time/CCT Total # of Minutes Spent Total Time Spent with Patient: Total time spent is greater than 50% in coordination of care (as documented) at patient's floor/unit and/or counseling patient: Coding Level of Care Code 33734 INT INP/OBS CARE 3/75MIN Diagnoses Third degree heart block I44.2 Syncope R55 Syncope type: unspecified Primary hypertension I10 Hypertension type: primary hypertension Elevated troponin R79.89 (2) Syncope Syncope type: unspecified Qualified Code(s): R55 - Syncope and collapse (3) Hypertension Hypertension type: primary hypertension Qualified Code(s): I10 - Essential (primary) hypertension
--- NOTE | 2023-03-25 10:34 | XCELERA ---
[id number] [id number]
[2023-03-25] MEDS: buPROPion XL 150 MG TABCR PO SCH (10:37)
[2023-03-25] MEDS: ESCITALOPRAM OXALATE 20 MG TAB PO SCH (10:37)
--- NOTE | 2023-03-25 15:45 | History & Physical Bridge Note ---
Date of Service March 25, 2023 History & Physical Bridge Note I have examined the patient, reviewed the History & Physical and in the interval since the performance of the History & Physical I have noted the following changes of clinical significance: No further CHB on tele today, feeling well except a headache because he hasn't eaten yet today. Resumed home wellbutrin and lexapro Discussed care with Cardiology-plan for PPM on Mon or Monday depending on EP schedule ECHO reviewed: EF 60-65%, no WMA, mod LVH COntinue pacer pads, atropine prn, ICU monitoring, lyte replacement prn Appreciate Cardiology management Plan for PPM Mon-Monday Can eat today
[2023-03-25] MEDS: LOSARTAN POTASSIUM 50 MG TAB PO SCH (20:46)
[2023-03-25] MEDS: ATORVASTATIN 40 MG TAB PO SCH (20:46)
[2023-03-25] MEDS: TAMSULOSIN HCL 0.4 MG CAP PO SCH (20:47)
[2023-03-25 22:28] LABS: Appearance Urine Clear (Clear); Bilirubin Urine Negative (Negative); Blood Urine Negative (Negative); Color Urine Yellow; Glucose Urine UA Negative (Negative); Ketones Urine 2+ (Negative); Leukocyte Esterase Urine Negative (Negative); Nitrite Urine Negative (Negative); Protein Urine Negative (Negative); Specific Gravity Urine 1.021 (1.000-1.030); Urobilinogen Urine Negative (Negative)
[2023-03-25 22:55] LABS: Amphetamines+Metham, Urine Neg (Neg); Barbiturates, Urine Pos (Neg); Benzodiazepine, Urine Neg (Neg); Cocaine, Urine Neg (Neg); MDMA (Ecstacy), Urine Pos (Neg); Marijuana, Urine Neg (Neg); Methadone, Urine Neg (Neg); Opiate, Urine Neg (Neg); Phencyclidine, Urine Neg (Neg)
[2023-03-26 05:03] LABS: Basophils # (auto) 0.03 K/uL (0.00-0.20); Basophils % (auto) 0.4 %; Eosinophils # (auto) 0.11 K/uL (0.00-0.50); Eosinophils % (auto) 1.6 %; Hematocrit (blood only) 39.6 % (42.0-52.0); Hemoglobin 12.9 g/dl (14.0-18.0); Immature Granulocytes # (auto) 0.02 K/uL (0.01-0.20); Immature Granulocytes % (auto) 0.3 %; Mean Corpuscular Hemoglobin 30.1 pg (25.0-34.0); Mean Corpuscular Hgb Conc 32.6 g/dL (32.0-36.0); Mean Corpuscular Volume 92.3 fL (80.0-100.0); Mean Platelet Volume 8.9 fL (9.4-12.4); Monocytes # (auto) 0.69 K/uL (0.11-0.59); Neutrophils # (auto) 4.05 K/uL (1.40-6.50); Neutrophils % (auto) 58.7 %; Platelet Count 183 K/uL (130-400); RDW Coefficient of Variation 13.7 % (11.5-14.5); RDW Standard Deviation 46.6 fL (36.4-46.3); Red Blood Count 4.29 M/uL (4.70-6.10)
[2023-03-26 05:15] LABS: Albumin Globulin Ratio 1.5 (0.9-2); Albumin Level 3.6 gm/dl (3.4-5.0); BUN Creatinine Ratio 18.6 (10-20); Bilirubin,Total 0.8 mg/dl (0.2-1.0); Calcium 8.4 mg/dl (8.6-10.3); Creatinine Clr Calc Pharmacy 84.3 ml/min; Est GFR (African American) 91.9 ml/min; Est GFR (Non-African American) 79.3 ml/min; Globulin 2.4 gm/dl (2.5-4.0); Potassium 3.9 mmol/L (3.5-5.1)
[2023-03-26] MEDS: buPROPion XL 150 MG TABCR PO SCH (07:43)
[2023-03-26] MEDS: FLUTICASONE PROPIONATE NA SPR 16 GM BTL NAE SCH ×2 (07:43→20:08)
[2023-03-26] MEDS: PANTOprazole 40 MG TAB PO SCH (07:43)
[2023-03-26] MEDS: ESCITALOPRAM OXALATE 20 MG TAB PO SCH (07:43)
[2023-03-26] MEDS: ICU Protocol for HYPERglycemia SCH ×2 (09:02→13:02)
--- NOTE | 2023-03-26 12:21 | Critical Care Progress Note ---
Date of Service March 26, 2023 Assessment & Plan (1) Third degree heart block: (2) Syncope: (3) Abrasion of face: (4) Barretts esophagus: (5) Impaired fasting glucose: (6) RBBB (right bundle branch block): Plan Reason Critically Ill: 67 YOM with history of "spells", however did have syncope like activity on 22 Mar 2023 and presented today with 3 blurry vision episodes associated with palpations and dizziness. Did have an ECG captured today which showed 3rd degree AV block. Patient received Atropine x1mg in the EMD with resolution of rhythm. Brought to the ICU for monitoring of rhythm and chronotropic medications if needed. Neuro - Headaches, Syncope with head strike Cardiac - Syncope, 3rd degree AV block, HTN, HLD -Hemodynamically stable Plan for permanent pacemaker tomorrow with cardiology - Continue ARB, Continue Statin Respiratory - No acute needs GI - GERD with Geraldo's Esophagus - Continue PPI RENAL/LYTES - No acute needs - ICU electrolyte protocol - No acute needs ENDO - Pre-diabetic - ICU hyperglycemic protocol HEME - No acute needs ID - No acute concerns for infectious etiology at this time LINES/IV ACCESS - PIV Continue use of these lines DVT PROPHYLAXIS - SCDS, Lovenox 40mg SQ daily DISPO: Has demonstrated hemodynamic stability would be appropriate for downgrade out of ICU to telemetry Admission and Anticipated Discharge Date Admission Date: March 25, 2023 Subjective No overnight events, no complaints this morning. Ate all of lunch Physical Exam Physical Exam: General: Alert. nontoxic. Skin: Warm, dry, Head: Improving abrasion and mild ecchymoses to left side of face which was present from fall Ears, nose, mouth and throat: airway patent Cardiovascular: Normal peripheral perfusion Respiratory: no respiratory distress Gastrointestinal: Non distended Musculoskeletal: No deformity Results & Data Results & Data Vital Signs (Past 12 Hours) Vital Signs Temp Pulse Resp BP Pulse Ox O2 Del Method 03/26/23 08:00 Room Air 03/26/23 08:00 76 03/26/23 06:00 37.2 C 76 16 143/69 H 92 Room Air 03/26/23 05:01 37.3 C 72 18 136/67 91 Room Air 03/26/23 05:00 72 14 90 03/26/23 04:00 71 19 135/68 03/26/23 03:30 133/73 03/26/23 03:00 37.3 C 71 20 141/74 H 90 Room Air 03/26/23 02:00 69 18 141/77 H 91 Room Air 03/26/23 01:00 37.2 C 68 19 129/97 91 Room Air Critical Care Results & Data Vital Signs (Past 12 Hours) Vital Signs Temp Pulse Resp BP Pulse Ox O2 Del Method 03/26/23 08:00 Room Air 03/26/23 08:00 76 03/26/23 06:00 37.2 C 76 16 143/69 H 92 Room Air 03/26/23 05:01 37.3 C 72 18 136/67 91 Room Air 03/26/23 05:00 72 14 90 03/26/23 04:00 71 19 135/68 03/26/23 03:30 133/73 03/26/23 03:00 37.3 C 71 20 141/74 H 90 Room Air 03/26/23 02:00 69 18 141/77 H 91 Room Air 03/26/23 01:00 37.2 C 68 19 129/97 91 Room Air Lab & Micro Results (Past 24 Hours) RBC 4.29 M/uL (4.70-6.10) L 03/26/23 WBC 6.90 K/ul (4.8-10.8) 03/26/23 Hgb 12.9 g/dl (14.0-18.0) L 03/26/23 Hct 39.6 % (42.0-52.0) L 03/26/23 MCV 92.3 fL (80.0-100.0) 03/26/23 MCH 30.1 pg (25.0-34.0) 03/26/23 MCHC 32.6 g/dL (32.0-36.0) 03/26/23 RDW Standard Deviation 46.6 fL (36.4-46.3) H 03/26/23 RDW Coefficient of Variation 13.7 % (11.5-14.5) 03/26/23 Plt Count 183 K/uL (130-400) 03/26/23 MPV 8.9 fL (9.4-12.4) L 03/26/23 Neutrophils (%) (Auto) 58.7 % 03/26/23 Lymphocytes (%) (Auto) 29.0 % 03/26/23 Monocytes # (Auto) 0.69 K/uL (0.11-0.59) H 03/26/23 Eosinophils # (Auto) 0.11 K/uL (0.00-0.50) 03/26/23 Immature Granulocyte % (Auto) 0.3 % 03/26/23 Neutrophils # (Auto) 4.05 K/uL (1.40-6.50) 03/26/23 Lymphocytes # (Auto) 2.00 K/uL (1.20-3.40) 03/26/23 Monocytes # (Auto) 0.69 K/uL (0.11-0.59) H 03/26/23 Eosinophils # (Auto) 0.11 K/uL (0.00-0.50) 03/26/23 Basophils # (Auto) 0.03 K/uL (0.00-0.20) 03/26/23 Immature Granulocyte # (Auto) 0.02 K/uL (0.01-0.20) 4 Na 139 mmol/L (136-145) 03/26/23 K 3.9 mmol/L (3.5-5.1) 03/26/23 Cl 105 mmol/L (98-107) 03/26/23 CO2 27 mmol/L (21-32) 03/26/23 Anion Gap 7 (3-11) 03/26/23 BUN 18 mg/dl (6-23) 03/26/23 Creatinine 0.97 mg/dl (0.6-1.4) 03/26/23 Estimated GFR ( Amer) 91.9 ml/min 03/26/23 Estimated GFR (Non-Af Amer) 79.3 ml/min 03/26/23 BUN/Creatinine Ratio 18.6 (10-20) 03/26/23 Glu 106 mg/dl (70-99(Fasting)) H 03/26/23 Ca 8.4 mg/dl (8.6-10.3) L 03/26/23 Total Bilirubin 0.8 mg/dl (0.2-1.0) 03/26/23 AST 19 U/L (13-39) 03/26/23 ALT 18 U/L (7-52) 03/26/23 Alkaline Phosphatase 87 U/L (34-104) 03/26/23 TP 6.0 gm/dl (6.0-8.3) 03/26/23 Albumin 3.6 gm/dl (3.4-5.0) 03/26/23 Globulin 2.4 gm/dl (2.5-4.0) L 03/26/23 Albumin/Globulin Ratio 1.5 (0.9-2) 03/26/23 Mg 2.0 mg/dl (1.7-2.4) 03/26/23 04:25 Calcium Level 8.4 mg/dl (8.6-10.3) L 03/26/23 04:25 I & O Totals 24 Hours 03/25/23 03/26/23 03/27/23 06:59 06:59 06:59 Intake Total 852 / 852 1740 / 1740 100 / 100 Output Total 0 / 0 1351 / 1351 Balance 852 / 852 389 / 389 100 / 100 Cumulative 03/24/23 22:05 thru 03/26/23 08:00 Intake Total 2692 Output Total 1351 Balance 1341 RT Ventilator Mngmt (Last Documented) Ventilator Ordered Settings Respiratory Rate 16 03/26/23 06:00 Ventilator - PT Measurements Respiratory Rate 16 Coding Level of Care Code 29624 SUB INP/OBS CARE 2/35MIN Diagnoses Third degree heart block I44.2 Syncope R55 Syncope type: unspecified Abrasion of face S00.81XA Encounter type: initial encounter Anderson's esophagus with dysplasia K22.719 Anderson's esophagus type: with dysplasia of unspecified degree Impaired fasting glucose R73.01 RBBB (right bundle branch block) I45.10 (2) Syncope Syncope type: unspecified Qualified Code(s): R55 - Syncope and collapse (3) Abrasion of face Encounter type: initial encounter Qualified Code(s): S00.81XA - Abrasion of other part of head, initial encounter (4) Barretts esophagus Anderson's esophagus type: with dysplasia of unspecified degree Qualified Code(s): K22.719 - Anderson's esophagus with dysplasia, unspecified
--- NOTE | 2023-03-26 12:37 | Cardiology Progress Note ---
Date of Service March 26, 2023 Assessment & Plan (1) Third degree heart block: (2) Syncope: (3) Hypertension: (4) Elevated troponin: Plan ASSESSMENT/PLAN: 1. Third-degree AV block: Noted on initial ECG with recent recurrent syncope and near syncope. Recommend permanent pacemaker. Has had increased frequency of events as an outpatient. No significant high-grade AV block since yesterday's consultation. No need for temporary pacemaker at this time but could pursue if needed urgently before permanent pacemaker can be placed. Keep pacer pads in place. Atropine at the bedside. Bedrest to avoid injury if it should recur. N.p.o. after midnight for possible pacemaker on Monday if electrophysiology is available. Have communicated with electrophysiology. 2. Syncope: Plan as above. 3. Hypertension: Blood pressure normotensive to mildly hypertensive. Avoid AV nilda blocking agents. Continue current regimen. 4. Elevated troponin: He did not present with acute coronary syndrome. Likely demand ischemia. 5. Disposition: Cardiology will continue to follow. Electrophysiology to continue his cardiology care tomorrow. Please call on-call manufacturing engineer machining with questions or concerns. Admission and Anticipated Discharge Date Admission Date: March 25, 2023 Subjective Patient seen this morning. He denies any further syncopal or near syncopal episodes. He denies chest pain, palpitations, shortness of breath, edema. Reports some left knee pain from a previous fall (defer to primary hospitalist service). He is agreeable to proceed with pacemaker when EP is available. He was alone in his hospital room. Physical Exam Physical Exam: Gen.: No acute distress. Alert and oriented. HEENT: Anicteric sclera. Neck: No JVD. Cardiac: No ventricular heave. Regular. Normal S1-S2. No murmurs, rubs, or gallops. Pulmonary: Clear to auscultation bilaterally without wheezes, rales, or rhonchi. Abdomen: Soft, nontender, nondistended, with normoactive bowel sounds. No bruits noted. Extremities: 2+ radial pulses bilaterally. 2+ posterior tibialis pulses bilaterally. No edema or cyanosis. Results & Data Vital Signs (Past 12 Hours) Vital Signs Temp Pulse Resp BP Pulse Ox O2 Del Method 03/26/23 08:00 Room Air 03/26/23 08:00 76 03/26/23 06:00 37.2 C 76 16 143/69 H 92 Room Air 03/26/23 05:01 37.3 C 72 18 136/67 91 Room Air 03/26/23 05:00 72 14 90 03/26/23 04:00 71 19 135/68 03/26/23 03:30 133/73 03/26/23 03:00 37.3 C 71 20 141/74 H 90 Room Air 03/26/23 02:00 69 18 141/77 H 91 Room Air 03/26/23 01:00 37.2 C 68 19 129/97 91 Room Air Laboratory Results Laboratory Results - last 24 hr 03/25/23 03/25/23 03/25/23 16:59 20:52 22:00 WBC RBC Hgb Hct MCV MCH MCHC RDW Std Deviation RDW Coeff of Marcus Plt Count MPV Immature Gran % (Auto) Neut % (Auto) Lymph % (Auto) [place] % (Auto) Eos % (Auto) Baso % (Auto) Neut # (Auto) Lymph # (Auto) [place] # (Auto) Eos # (Auto) Baso # (Auto) Immature Gran # (Auto) Sodium Potassium Chloride Carbon Dioxide Anion Gap BUN Creatinine Est Cr Clr Drug Dosing Est GFR ( Amer) Est GFR (Non-Af Amer) BUN/Creatinine Ratio Glucose POC Glucose 107 H 104 H Calcium Magnesium Total Bilirubin AST ALT Alkaline Phosphatase Total Protein Albumin Globulin Albumin/Globulin Ratio Urine Color Yellow Urine Appearance Clear Urine pH 5.0 Ur Specific Hillister 1.021 Urine Protein Negative Urine Glucose (UA) Negative Urine Ketones 2+ H Urine Blood Negative Urine Nitrite Negative Urine Bilirubin Negative Urine Urobilinogen Negative Ur Leukocyte Esterase Negative Urine Butalbital Pending Urine Opiates Screen Neg Ur Methadone, Qual Neg Urine Barbiturates Pos H Ur Phencyclidine (PCP) Neg U Amphetamin/Meth Scrn Neg Urine MDEA Pending MDMA (Ecstasy) Screen Pos H MDMA Pending Urine MDMA Pending Urine Amobarbital Pending Urine Pentobarbital Pending Urine Phenobarbital Pending Urine Secobarbital Pending U Benzodiazepines Scrn Neg Ur Cocaine Metabolite Neg U Marijuana (THC) Screen Neg Drug Screen Comment Pending 03/26/23 04:25 WBC 6.90 RBC 4.29 L Hgb 12.9 L Hct 39.6 L MCV 92.3 MCH 30.1 MCHC 32.6 RDW Std Deviation 46.6 H RDW Coeff of Marcus 13.7 Plt Count 183 MPV 8.9 L Immature Gran % (Auto) 0.3 Neut % (Auto) 58.7 Lymph % (Auto) 29.0 [place] % (Auto) 10.0 Eos % (Auto) 1.6 Baso % (Auto) 0.4 Neut # (Auto) 4.05 Lymph # (Auto) 2.00 [place] # (Auto) 0.69 H Eos # (Auto) 0.11 Baso # (Auto) 0.03 Immature Gran # (Auto) 0.02 Sodium 139 Potassium 3.9 Chloride 105 Carbon Dioxide 27 Anion Gap 7 BUN 18 Creatinine 0.97 Est Cr Clr Drug Dosing 84.3 Est GFR ( Amer) 91.9 Est GFR (Non-Af Amer) 79.3 BUN/Creatinine Ratio 18.6 Glucose 106 H POC Glucose Calcium 8.4 L Magnesium 2.0 Total Bilirubin 0.8 AST 19 ALT 18 Alkaline Phosphatase 87 Total Protein 6.0 Albumin 3.6 Globulin 2.4 L Albumin/Globulin Ratio 1.5 Urine Color Urine Appearance Urine pH Ur Specific Hillister Urine Protein Urine Glucose (UA) Urine Ketones Urine Blood Urine Nitrite Urine Bilirubin Urine Urobilinogen Ur Leukocyte Esterase Urine Butalbital Urine Opiates Screen Ur Methadone, Qual Urine Barbiturates Ur Phencyclidine (PCP) U Amphetamin/Meth Scrn Urine MDEA MDMA (Ecstasy) Screen MDMA Urine MDMA Urine Amobarbital Urine Pentobarbital Urine Phenobarbital Urine Secobarbital U Benzodiazepines Scrn Ur Cocaine Metabolite U Marijuana (THC) Screen Drug Screen Comment Diagnostic Findings Telemetry personally reviewed: Sinus rhythm with first-degree AV block. No high-grade AV block. No significant pause. No arrhythmia. Chart reviewed. Labs reviewed and notable for mild anemia, stable renal function, normal potassium, normal transaminase levels. Medications Administered Current Inpatient Medications Atorvastatin Calcium (Atorvastatin 40 Mg Tab) 80 mg PO QPM KIRSTY Stop: 04/24/23 20:59 Last Admin: 03/25/23 20:46 Dose: 80 mg Azelastine HCl (Azelastine Hcl 0.1% Nasal 200 Sprays/27,400 Mcg Btl) 1 sprays NATASHA HS PRN PRN Reason: Nasal Congestion Stop: 04/24/23 03:59 Bupropion HCl (Bupropion Xl 150 Mg Tabcr) 150 mg PO QAM KIRSTY Stop: 04/24/23 08:59 Last Admin: 03/26/23 07:43 Dose: 150 mg Escitalopram Oxalate (Escitalopram Oxalate 20 Mg Tab) 20 mg PO QAM KIRSTY Stop: 04/24/23 08:59 Last Admin: 03/26/23 07:43 Dose: 20 mg Fluticasone Propionate (Fluticasone Propionate Na Spr 16 Gm Btl) 1 sprays NATASHA BID KIRSTY Stop: 04/24/23 08:59 Last Admin: 03/26/23 07:43 Dose: 1 sprays Losartan Potassium (Losartan Potassium 50 Mg Tab) 50 mg PO QPM KIRSTY Stop: 04/24/23 20:59 Last Admin: 03/25/23 20:46 Dose: 50 mg Pantoprazole Sodium (Pantoprazole 40 Mg Tab) 40 mg PO DAILY KIRSTY Stop: 04/24/23 08:59 Last Admin: 03/26/23 07:43 Dose: 40 mg Tamsulosin HCl (Tamsulosin Hcl 0.4 Mg Cap) 0.4 mg PO QPM KIRSTY Stop: 04/24/23 20:59 Last Admin: 03/25/23 20:47 Dose: 0.4 mg PG Care Time/CCT Total # of Minutes Spent Total Time Spent with Patient: Total time spent is greater than 50% in coordination of care (as documented) at patient's floor/unit and/or counseling patient: Coding Level of Care Code 98790 SUB INP/OBS CARE 3/50MIN Diagnoses Third degree heart block I44.2 Syncope R55 Syncope type: unspecified Primary hypertension I10 Hypertension type: primary hypertension Elevated troponin R79.89 (2) Syncope Syncope type: unspecified Qualified Code(s): R55 - Syncope and collapse (3) Hypertension Hypertension type: primary hypertension Qualified Code(s): I10 - Essential (primary) hypertension
--- NOTE | 2023-03-26 17:51 | Hospitalist Progress Note ---
Date of Service March 26, 2023 Assessment & Plan (1) Third degree heart block: Plan: Admitted to intensive care unit w/ third-degree heart block and recurrent syncope- Status post atropine 1 mg IV in the ED and pacer pads in place. No further heart block since admission Blood pressures are normal to elevated Lyme test negative, troponin mildly elevated secondary to myocardial demand ischemia CT head and cervical spine negative from 03/22 when he was in the ER with facial trauma from syncope Cardiology consultation appreciated Plan for permanent pacemaker placement on 03/27 N.p.o. after midnight Monitor on telemetry Keep electrolytes optimized-follow BMP, magnesium Bedrest except can use bedside commode (2) Syncope: Plan: Secondary to complete heart block Plan for permanent pacemaker placement on 03/27 Echocardiogram with EF 60-65%, no wall motion abnormalities, moderate LVH, mildly dilated RV with normal systolic function (3) Depression: Plan: No acute issues Continue home escitalopram, bupropion His home bupropion is making his ecstasy falsely positive on his urine drug screen (4) Hypertension: Plan: Blood pressures are slightly elevated but do not want to overly control in the setting of complete heart block Continue home losartan Holding home HCTZ (5) CHI (closed head injury): Plan: CT head and cervical spine negative after fall from syncope with trauma to the face on 03/22 Headache is now resolved but he does have chronic headaches for which she takes Tylenol as needed and more recently was started on Fioricet as needed Urine drug screen positive for barbiturates which is from the butalbital and the Fioricet (6) BPH loc w urin obs/LUTS: Plan: No acute issues Continue tamsulosin (7) Hyperlipidemia: Plan: Continue atorvastatin Plan DVT prophylaxis-SCDs Disposition-downgrade from ICU to PCU, will stay until Monday after pacemaker placement on Monday Admission and Anticipated Discharge Date Admission Date: March 25, 2023 Subjective Patient denies chest pain or shortness of breath. He denies headache today. Telemetry reviewed and has sinus rhythm with first-degree AV block, no further complete heart block I discussed his care with the lip reading teacher Physical Exam Constitutional: WD/WN, vitals as above Eyes: + anicteric sclerae ENMT: Left base with mild periorbital ecchymosis and abrasion on forehead Respiratory: normal respiratory effort, lungs clear to auscultation Cardiovascular: Rate/Rhythm: regular rate and regular rhythm Heart Sounds: no murmur Extremities: no edema Gastrointestinal (Abdomen): normal bowel sounds, soft, nontender, no hepatosplenomegaly Neurologic: PERRL, EOMI, accommodation nl, no face palsy, no dysarthria Psychiatric: A+Ox3, euthymic affect Results & Data Results & Data Vital Signs (Past 12 Hours) Vital Signs Temp Pulse Pulse Resp BP BP Pulse Ox 03/26/23 15:55 36.7 C 89 18 162/83 H 92 03/26/23 15:41 72 03/26/23 13:01 80 22 148/76 H 92 03/26/23 12:00 88 14 155/83 H 92 03/26/23 10:00 74 23 122/77 90 03/26/23 09:00 89 18 133/78 91 03/26/23 08:00 20 161/87 H 93 03/26/23 08:00 03/26/23 08:00 76 03/26/23 07:00 71 18 139/71 94 03/26/23 06:00 37.2 C 76 16 143/69 H 92 O2 Del Method 03/26/23 15:55 Room Air 03/26/23 15:41 03/26/23 13:01 03/26/23 12:00 03/26/23 10:00 03/26/23 09:00 03/26/23 08:00 03/26/23 08:00 Room Air 03/26/23 08:00 03/26/23 07:00 03/26/23 06:00 Room Air Laboratory Results CBC, CMP, magnesium reviewed Urine drug screen reviewed PG Care Time/CCT Total # of Minutes Spent Total Time Spent with Patient: Total time spent is greater than 50% in coordination of care (as documented) at patient's floor/unit and/or counseling patient: Coding Level of Care Code 63137 SUB INP/OBS CARE 2/35MIN Diagnoses Third degree heart block I44.2 Syncope R55 Syncope type: unspecified Depression, unspecified depression type F32.A Depression Type: unspecified Primary hypertension I10 Hypertension type: primary hypertension CHI (closed head injury) S09.90XA Encounter type: initial encounter BPH loc w urin obs/LUTS N40.1 Mixed hyperlipidemia E78.2 Hyperlipidemia type: mixed hyperlipidemia (2) Syncope Syncope type: unspecified Qualified Code(s): R55 - Syncope and collapse (3) Depression Depression Type: unspecified Qualified Code(s): F32.A - Depression, unspecified (4) Hypertension Hypertension type: primary hypertension Qualified Code(s): I10 - Essential (primary) hypertension (5) CHI (closed head injury) Encounter type: initial encounter Qualified Code(s): S09.90XA - Unspecified injury of head, initial encounter (7) Hyperlipidemia Hyperlipidemia type: mixed hyperlipidemia Qualified Code(s): E78.2 - Mixed hyperlipidemia
[2023-03-26] MEDS: LOSARTAN POTASSIUM 50 MG TAB PO SCH (20:09)
[2023-03-26] MEDS: ATORVASTATIN 40 MG TAB PO SCH (20:10)
[2023-03-26] MEDS: TAMSULOSIN HCL 0.4 MG CAP PO SCH (20:10)
--- NOTE | 2023-03-26 21:41 | Electrocardiogram Report ---
Test Reason : Blood Pressure : / mmHG Vent. Rate : 042 BPM Atrial Rate : 112 BPM P-R Int : 142 ms QRS Dur : 132 ms QT Int : 526 ms P-R-T Axes : 007 -63 -18 degrees QTc Int : 439 ms Sinus tachycardia with AV dissociation and ventricular escape complexes Left axis deviation Right bundle branch block Minimal voltage criteria for LVH, may be normal variant ( R in aVL ) Inferior infarct , age undetermined Abnormal ECG When compared with ECG of 22-MAR-2023 18:44, High grade AV block is now present Vent. rate has decreased by 27 bpm Confirmed by Herbie Lyman ([id number]) on 03/26/2023 9:41:08 PM Referred By: REFERRED SELF Confirmed By:Herbei Lyman
--- NOTE | 2023-03-26 21:43 | Electrocardiogram Report ---
Test Reason : Blood Pressure : / mmHG Vent. Rate : 109 BPM Atrial Rate : 109 BPM P-R Int : 224 ms QRS Dur : 122 ms QT Int : 356 ms P-R-T Axes : 000 -66 052 degrees QTc Int : 479 ms Sinus tachycardia with 1st degree A-V block Left axis deviation Right bundle branch block Inferior infarct (cited on or before 24-MAR-2023) Anterolateral infarct (cited on or before 22-MAR-2023) Abnormal ECG When compared with ECG of 24-MAR-2023 22:20, Vent. rate has increased by 67 bpm 1st degree AV block has replaced high grade AV block Confirmed by Herbie Lyman ([id number]) on 03/26/2023 9:43:23 PM Referred By: REFERRED SELF Confirmed By:Herbie Lyman
--- NOTE | 2023-03-26 22:28 | Electrocardiogram Report ---
Test Reason : Blood Pressure : / mmHG Vent. Rate : 071 BPM Atrial Rate : 071 BPM P-R Int : 264 ms QRS Dur : 150 ms QT Int : 462 ms P-R-T Axes : 048 -72 045 degrees QTc Int : 502 ms Sinus rhythm with 1st degree A-V block Left axis deviation Right bundle branch block Inferior infarct (cited on or before 24-MAR-2023) Abnormal ECG When compared with ECG of 24-MAR-2023 22:41, Vent. rate has decreased by 38 bpm Confirmed by Herbie Lyman ([id number] on 03/26/2023 10:28:14 PM Referred By: REFERRED SELF Confirmed By:Herbie Lyman
[2023-03-27] MEDS ORDERED: LIDOCAINE 1% LOCAL 20 ML VIAL ONE (07:30)
[2023-03-27] MEDS ORDERED: WATER, STERILE FOR INJ 10 ML VIAL ONE (07:30)
[2023-03-27] MEDS ORDERED: VANCOMYCIN HCL 1000MG/20ML VIAL ONE (07:30)
[2023-03-27] MEDS ORDERED: BUPIVACAINE 0.25% PF 30 ML VIAL ONE (07:30)
[2023-03-27 07:39] LABS: Basophils # (auto) 0.04 K/uL (0.00-0.20); Basophils % (auto) 0.6 %; Eosinophils # (auto) 0.14 K/uL (0.00-0.50); Eosinophils % (auto) 2.1 %; Hematocrit (blood only) 38.1 % (42.0-52.0); Hemoglobin 12.5 g/dl (14.0-18.0); Immature Granulocytes # (auto) 0.01 K/uL (0.01-0.20); Immature Granulocytes % (auto) 0.1 %; Lymphocytes # (auto) 2.07 K/uL (1.20-3.40); Lymphocytes % (auto) 30.5 %; Mean Corpuscular Hemoglobin 30.3 pg (25.0-34.0); Mean Corpuscular Hgb Conc 32.8 g/dL (32.0-36.0); Mean Corpuscular Volume 92.5 fL (80.0-100.0); Mean Platelet Volume 8.7 fL (9.4-12.4); Monocytes % (auto) 10.3 %; Neutrophils # (auto) 3.82 K/uL (1.40-6.50); Neutrophils % (auto) 56.4 %; Platelet Count 186 K/uL (130-400); RDW Coefficient of Variation 13.7 % (11.5-14.5); RDW Standard Deviation 47.1 fL (36.4-46.3); Red Blood Count 4.12 M/uL (4.70-6.10); White Blood Count 6.78 K/ul (4.8-10.8)
[2023-03-27] MEDS ORDERED: fentaNYL citrate PF 100 MCG/2 ML VIAL ONE (07:47)
[2023-03-27] MEDS ORDERED: MIDAZOLAM HCL 5 MG/ML 1 ML VIAL ONE (07:47)
[2023-03-27] MEDS ORDERED: ceFAZolin 330 MG/ML 1 GM VIAL ONE (07:47)
--- NOTE | 2023-03-27 08:01 | Pre Anesthesia Assessment ---
Date of Service March 27, 2023 Pre Sedation Assessment Vital Signs Temp Pulse Pulse Resp BP BP BP 03/27/23 04:09 37.2 C 66 16 146/74 H 03/26/23 23:10 36.8 C 79 16 154/80 H 03/26/23 22:05 79 03/26/23 19:13 36.6 C 69 18 145/81 H 03/26/23 15:55 36.7 C 89 18 162/83 H 03/26/23 15:41 72 03/26/23 13:01 80 22 148/76 H 03/26/23 12:00 88 14 155/83 H 03/26/23 10:00 74 23 122/77 03/26/23 09:00 89 18 133/78 Pulse Ox O2 Del Method 03/27/23 04:09 93 Room Air 03/26/23 23:10 94 Room Air 03/26/23 22:05 03/26/23 19:13 95 Room Air 03/26/23 15:55 92 Room Air 03/26/23 15:41 03/26/23 13:01 92 03/26/23 12:00 92 03/26/23 10:00 90 03/26/23 09:00 91 Cardiovascular + regular rate and + regular rhythm Respiratory + respiratory effort normal Pre-Sedation Airway Assessment Smoking Status: Unknown if ever smoked Hx Sleep Apnea: No Hx Difficult Intubation: No Short, Thick Neck: No Thyromental Distance: > or= 3.5 Finger Breadths Oral Cavity: + WNL Mallampati Class: IV ASA: ASA3 NPO Status Date of Last Intake of Fluids: 03/26/23 Date of Last Intake of Solid Food: 03/26/23 Procedure Planning Contraindications for Sedation: none Current Medications Reviewed: Yes Notes The planned sedation has been discussed with the patient. Informed Consent was obtained. I have identified the patient, determined the appropriateness of sedation and have assessed the patient immediately prior to the procedure. All medicine(s) and interventions are by my order.
[2023-03-27 08:07] LABS: Albumin Globulin Ratio 1.5 (0.9-2); Albumin Level 3.5 gm/dl (3.4-5.0); BUN Creatinine Ratio 17.1 (10-20); Bilirubin,Total 0.7 mg/dl (0.2-1.0); Calcium 8.6 mg/dl (8.6-10.3); Creatinine Clr Calc Pharmacy 77.9 ml/min; Est GFR (African American) 83.5 ml/min; Est GFR (Non-African American) 72.1 ml/min; Globulin 2.3 gm/dl (2.5-4.0); Magnesium 2.1 mg/dl (1.7-2.4); Potassium 3.5 mmol/L (3.5-5.1); Total Protein 5.8 gm/dl (6.0-8.3)
--- NOTE | 2023-03-27 09:07 | Post Anesthesia Assessment ---
Date of Service March 27, 2023 Post Sedation Assessment Vital Signs Temp Pulse Pulse Resp BP BP BP 03/27/23 04:09 37.2 C 66 16 146/74 H 03/26/23 23:10 36.8 C 79 16 154/80 H 03/26/23 22:05 79 03/26/23 19:13 36.6 C 69 18 145/81 H 03/26/23 15:55 36.7 C 89 18 162/83 H 03/26/23 15:41 72 03/26/23 13:01 80 22 148/76 H 03/26/23 12:00 88 14 155/83 H 03/26/23 10:00 74 23 122/77 Pulse Ox O2 Del Method 03/27/23 04:09 93 Room Air 03/26/23 23:10 94 Room Air 03/26/23 22:05 03/26/23 19:13 95 Room Air 03/26/23 15:55 92 Room Air 03/26/23 15:41 03/26/23 13:01 92 03/26/23 12:00 92 03/26/23 10:00 90 Recovery Score Activity: Moves 4 extremities Respiration: Deep Breath/Cough Circulation: +/-20% PreAnes Value Consciousness: Arouseable (by name) Oxygen Saturation: > 92% On Room Air Discharge Sedation Level of Care: Fast Track Phase II Post Sedation Plan On clinical assessment, the patient appears to have tolerated the sedation without complications. Patient is recovering as anticipated. Patient will continue to be monitored by nursing and may be discharged when sedation discharge criteria are met per below protocol. Upon Completions of procedure up to 15 minutes continue every 5 minute vital signs and the P.A.R. score; then discharge to a Phase I or Fast Track to Phase II per the following guidelines: * Discharge Patient to appropriate Phase II area if PAR is 8 or greater or return to pre- procedure baseline. The post - procedure orders will be as directed. * If PAR score is less than 8 or not return to pre-procedure baseline then patient will follow Phase I monitoring till PAR is reached for Phase II. The Phase I may be done in procedure room or may call to secure a Phase I area. * If naloxone or flumazenil are used for reversal, hold in Phase I for continued monitoring from when last reversal dose was given for a minimum of 60 minutes or longer pending the nurse and/or physician discretion of patient condition before discharge to Phase II. Please call the Sedation Physician to re-evaluate and complete post-note for discharge to Phase II area. Do NOT discharge from procedure sedation or Phase 1 until post- sedation evaluation note is complete by procedure /sedation MD Sedation Discharge Instructions to be given to the patient at discharge to home.
--- NOTE | 2023-03-27 09:07 | Electrophysiology Report ---
Date of Service March 27, 2023 Electrophysiology Procedure Electrophysiology Procedure Report Procedure performed: Implantation of dual-chamber permanent pacemaker with left bundle pacing lead Staff psychologist counseling: Klever Abrams MD Indication: The patient is a 67-year-old gentleman with a history of significant conduction disease who presented with a syncopal episode and complete heart block. Based on his presentation was felt to be a good candidate for permanent pacemaker due to symptomatic nonreversible AV node dysfunction. A dual-chamber device was selected as he is currently in sinus rhythm which to maintain AV synchrony. Procedure in detail: The patient was informed of the risks benefits and alternatives to the intended procedure and she wished to proceed. She was taken to the electrophysiology suite in a fasting state. A preoperative antibiotic had been administered. The patient was monitored electrocardiographically throughout today's procedure and conscious sedation was administered per protocol. The left upper pectoral area is prepped and draped in usual sterile fashion. This area was anesthetized using subcutaneous administration of a xylocaine solution. An incision was made at this site and carried down to the prepectoralis fascia using sharp dissection. Electrocautery was also employed for dissection as well as for hemostasis. A device pocket was fashioned tissues above the pectoralis muscle. Subsequent to this maneuver the left axillary vein was accessed using modified Seldinger technique. A sheath was placed over guidewire and used facilitate passage of a pacing lead to the right ventricular apex under fluoroscopic guidance. This was used for backup pacing all the permanent ventricular lead was placed. A sheath was placed over the remaining guidewire and used facilitate passage of the guiding catheter for mapping of the interventricular septum. Once an adequate location was identified the pacing lead was advanced into the interventricular septum until the appropriate waveform and electrophysiologic characteristics were obtained. At this point the guiding catheter was removed. The sheath was also removed. The previously placed right apical lead was then removed and placed back into the right atrium under fluoroscopic guidance. Adequate sensing threshold parameters were obtained prior to active fixation of this lead to the endocardial surface. The proximal portion of the leads were then sutured the prepectoral fascia using nonabsorbable suture. The device pocket was irrigated with antibiotic solution. The leads were then attached to the device. The device and leads were then placed in the pocket and pocket was closed in 3 layers of absorbable suture. Steri-Strips and sterile dressing were applied. The device was tested noninvasively prior to conclusion the procedure. The patient tolerated procedure well there no immediate complications. Equipment used: New pulse generator: Lock[employer]ch [employer]iner Medtronic. Model number: [id number] serial number [id number] Right atrial lead: Lock[employer]ch [employer]iner Medtronic. Model number: 5076 serial number [id number] Right ventricular lead: Lock[employer]ch [employer]iner Medtronic. Model number: 3830 serial number [id number] Measured data: Right atrial lead: P-waves measured 1.4 mV. Pacing threshold was 2.5 volts at 0.4 milliseconds with a pacing impedance of 532 Ohms Right ventricular lead: R-waves measured greater than 20 mV. Pacing threshold 0.75 volts at 0.4 milliseconds with a pacing impedance of 798 Ohms in the bipolar configuration. Impression: Successful implantation of dual-chamber permanent pacemaker with left bundle pacing lead [facility] Electrophysiology codes Pacing Procedure 1: Pacin Insert/Replace Pacer A & V PG Moderate Sedation Codes Moderate Sedation Codes Procedure 1: Sedation/Anesthesia: 75888 Mod Sedation by the same physician;Init15 Min Child Age 5 & Up Procedure 2: Sedation/Anesthesia: 13579 Mod Sedation by the same physician; Ea [id number] Minutes
[2023-03-27] MEDS ORDERED: oxyCODONE HCL IR 5 MG TAB (IMMEDIATE RELEASE) PO PRN (09:08)
[2023-03-27] MEDS: FLUTICASONE PROPIONATE NA SPR 16 GM BTL NAE SCH ×2 (11:03→20:49)
[2023-03-27] MEDS: PANTOprazole 40 MG TAB PO SCH (11:03)
[2023-03-27] MEDS: ESCITALOPRAM OXALATE 20 MG TAB PO SCH (11:03)
[2023-03-27] MEDS: buPROPion XL 150 MG TABCR PO SCH (11:03)
--- NOTE | 2023-03-27 13:46 | Electrocardiogram Report ---
Test Reason : Blood Pressure : / mmHG Vent. Rate : 075 BPM Atrial Rate : 075 BPM P-R Int : 234 ms QRS Dur : 158 ms QT Int : 428 ms P-R-T Axes : 033 -72 057 degrees QTc Int : 477 ms Sinus rhythm with 1st degree A-V block Right bundle branch block Left anterior fascicular block Cannot rule out Old Anterior infarct Abnormal ECG When compared with ECG of 25-MAR-2023 06:10, Criteria for Inferior infarct are no longer Present Confirmed by Leif Mcfadden ([id number]) on 03/27/2023 1:45:52 PM Referred By: REFERRED SELF Confirmed By:Leif Mcfadden
[2023-03-27] MEDS: ACETAMINOPHEN 325 MG TAB PO PRN ×2 (15:51→20:49)
[2023-03-27] MEDS ORDERED: ceFAZolin 1000MG 1,000 MG/7.5 ML SYR IV ONE (16:00)
--- NOTE | 2023-03-27 18:08 | Hospitalist Progress Note ---
Date of Service March 27, 2023 Assessment & Plan (1) Third degree heart block: Plan: Resolved. PPM placed today, March 27. Cardiology consultation and recommendations appreciated. Continue current medical management. (2) Syncope: Plan: Secondary to complete heart block. No recurrence while hospitalized. He now has a permanent cardiac pacemaker. Echocardiogram with EF 60-65%, no wall motion abnormalities, moderate LVH, mildly dilated RV with normal systolic function (3) Depression: Plan: Stable. Continue current medical management. (4) Hypertension: Plan: Stable. Continue losartan. Holding home HCTZ (5) CHI (closed head injury): Plan: CT head and cervical spine negative after falling due to syncope, with trauma to the face, on 03/22. Urine drug screen positive for barbiturates which is from the butalbital and the Fioricet (6) BPH loc w urin obs/LUTS: Plan: Stable. Continue tamsulosin (7) Hyperlipidemia: Plan: Stable. Continue atorvastatin Plan Hopeful discharge to home tomorrow, March 28 Admission and Anticipated Discharge Date Admission Date: March 25, 2023 Subjective Alert and oriented. No distress. He underwent PPM placement earlier today, March 27. Pacemaker insertion site is bandaged with no evidence of hemorrhage. Free T4 level is normal Review of Systems 2 Review of Systems: Constitutional-no fever or chills ENT-no blurred vision, no double vision, no epistaxis, no sore throat Respiratory-no cough, no wheezing, no shortness of breath Cardiac-no palpitations, no chest pain, no syncope GI-no nausea, vomiting, diarrhea, melena, hematochezia -no urinary retention, no urinary incontinence, no dysuria, no hematuria Musculoskeletal-no joint pain, no muscle tenderness Skin-no bruising, no rashes, no pruritus Neuro-no isolated weakness, no paresthesia, no weakness Psych-no depression, no anxiety Physical Exam 2 Physical Exam: General-alert and oriented x3, no fevers, no chills HEENT-head atraumatic and normocephalic, pupils equal and reactive to light, extraocular muscles intact Neck-no lymphadenopathy or thyromegaly, trachea midline Chest-clear to auscultation percussion. No rales, wheezing or rhonchi Cardiac-regular rate and rhythm, normal S1 and S2 Abdomen-normal bowel sounds, nontender, no hepatosplenomegaly Skinleft upper anterior chest wall pacer insertion site is unremarkable with hemostasis Extremities-no cyanosis, clubbing, or edema Neuro-cranial nerves II through XII intact, motor and sensory function within normal limits, strength symmetrical , no focal deficits Psych-normal affect, normal mood Results & Data Results & Data Vital Signs (Past 12 Hours) Vital Signs Temp Pulse Pulse Resp BP Pulse Ox O2 Del Method 03/27/23 16:08 65 03/27/23 15:15 37.2 C 87 16 118/69 95 Nasal Cannula 03/27/23 11:23 65 03/27/23 09:25 70 18 121/74 95 Nasal Cannula 03/27/23 09:10 70 18 143/77 H 93 Room Air 03/27/23 06:30 68 O2 Flow Rate 03/27/23 16:08 03/27/23 15:15 3 03/27/23 11:23 03/27/23 09:25 3 03/27/23 09:10 03/27/23 06:30 Laboratory Results 03/27/23 07:21 03/27/23 07:21 PG Care Time/CCT Total # of Minutes Spent Total Time Spent with Patient: Total time spent is greater than 50% in coordination of care (as documented) at patient's floor/unit and/or counseling patient: Coding Level of Care Code 09214 SUB INP/OBS CARE 3/50MIN Diagnoses Third degree heart block I44.2 Syncope R55 Syncope type: unspecified Depression, unspecified depression type F32.A Depression Type: unspecified Primary hypertension I10 Hypertension type: primary hypertension CHI (closed head injury) S09.90XA Encounter type: initial encounter BPH loc w urin obs/LUTS N40.1 Mixed hyperlipidemia E78.2 Hyperlipidemia type: mixed hyperlipidemia (2) Syncope Syncope type: unspecified Qualified Code(s): R55 - Syncope and collapse (3) Depression Depression Type: unspecified Qualified Code(s): F32.A - Depression, unspecified (4) Hypertension Hypertension type: primary hypertension Qualified Code(s): I10 - Essential (primary) hypertension (5) CHI (closed head injury) Encounter type: initial encounter Qualified Code(s): S09.90XA - Unspecified injury of head, initial encounter (7) Hyperlipidemia Hyperlipidemia type: mixed hyperlipidemia Qualified Code(s): E78.2 - Mixed hyperlipidemia
[2023-03-27] MEDS: ATORVASTATIN 40 MG TAB PO SCH (20:51)
[2023-03-27] MEDS: TAMSULOSIN HCL 0.4 MG CAP PO SCH (20:51)
[2023-03-27] MEDS: LOSARTAN POTASSIUM 50 MG TAB PO SCH (20:51)
[2023-03-28 07:37] LABS: Basophils # (auto) 0.04 K/uL (0.00-0.20); Basophils % (auto) 0.5 %; Eosinophils # (auto) 0.12 K/uL (0.00-0.50); Eosinophils % (auto) 1.5 %; Hematocrit (blood only) 41.9 % (42.0-52.0); Hemoglobin 13.5 g/dl (14.0-18.0); Immature Granulocytes # (auto) 0.02 K/uL (0.01-0.20); Immature Granulocytes % (auto) 0.3 %; Lymphocytes # (auto) 2.21 K/uL (1.20-3.40); Lymphocytes % (auto) 28.3 %; Mean Corpuscular Hemoglobin 29.8 pg (25.0-34.0); Mean Corpuscular Hgb Conc 32.2 g/dL (32.0-36.0); Mean Corpuscular Volume 92.5 fL (80.0-100.0); Mean Platelet Volume 8.8 fL (9.4-12.4); Monocytes # (auto) 0.73 K/uL (0.11-0.59); Monocytes % (auto) 9.4 %; Neutrophils # (auto) 4.68 K/uL (1.40-6.50); Platelet Count 204 K/uL (130-400); RDW Coefficient of Variation 13.9 % (11.5-14.5); RDW Standard Deviation 47.2 fL (36.4-46.3); Red Blood Count 4.53 M/uL (4.70-6.10)
[2023-03-28 07:44] LABS: Calcium 9.1 mg/dl (8.6-10.3); Creatinine Clr Calc Pharmacy 81.7 ml/min; Est GFR (African American) 88.6 ml/min; Est GFR (Non-African American) 76.5 ml/min; Magnesium 2.1 mg/dl (1.7-2.4); Potassium 3.6 mmol/L (3.5-5.1)
--- NOTE | 2023-03-28 07:49 | XRay Report ---
TWO VIEW CHEST CLINICAL HISTORY: Pacemaker implantation. FINDINGS: PA and lateral chest radiographs are compared to study dated 03/24/2023. A 2-lead cardiac pac emaker has been placed and partially obscures left mid chest. Leads project over the right atrial apple endage and right ventricle. The heart is enlarged noting atherosclerotic calcification of the thoraci c aorta. The pulmonary vasculature is noncongested. Chronic interstitial thickening is similar to pre vious. There is mild bibasilar scarring/atelectasis. The lungs and pleural spaces are otherwise greg r. There is no pneumothorax. The skeletal structures are osteopenic. The bony thorax appears intact. Degenerative change is noted in the thoracic spine. IMPRESSION: 1. A 2-lead cardiac pacemaker has been implanted as above. No pneumothorax is identified post procedu re. 2. Cardiomegaly without radiographic evidence of congestive failure. 3. No airspace consolidation or pleural effusion is identified. ACT 112: Negative or not required by law. Electronically signed by: Elieser Schneider M.D. 03/28/2023 7:48 AM
[2023-03-28] MEDS: PANTOprazole 40 MG TAB PO SCH (08:46)
[2023-03-28] MEDS: buPROPion XL 150 MG TABCR PO SCH (08:46)
[2023-03-28] MEDS: FLUTICASONE PROPIONATE NA SPR 16 GM BTL NAE SCH (08:46)
[2023-03-28] MEDS: ESCITALOPRAM OXALATE 20 MG TAB PO SCH (08:46)
[2023-03-28] MEDS: ACETAMINOPHEN 325 MG TAB PO PRN (08:49)
--- NOTE | 2023-03-28 08:49 | Cardiology Progress Note ---
Date of Service March 28, 2023 Assessment & Plan (1) Third degree heart block: Plan 1. Third-degree heart block: Patient underwent successful implantation of dual- chamber Medtronic pacemaker yesterday. No evident complication. Normal function of the device. Was stable for discharge from our standpoint today. He should refrain from lifting left arm above the shoulder behind the neck for 6 weeks. He should keep the wound dry and Steri-Strips intact until follow-up in our clinic next week. I will arrange the follow-up. Admission and Anticipated Discharge Date Admission Date: March 25, 2023 Subjective This morning patient claimed he feeling well. Minimal discomfort at the device implant site in left pectoral area. He states that after the procedure he thought that his mentation had improved. Physical Exam Physical Exam: Evaluation the device implant site reveals some mild ecchymosis. No hematoma or drainage. Minimally tender to palpation. Results & Data Vital Signs (Past 12 Hours) Vital Signs Temp Pulse Resp BP Pulse Ox O2 Del Method 03/28/23 07:45 36.8 C 67 18 149/87 H 95 Room Air 03/28/23 02:31 36.6 C 70 18 129/71 96 Room Air 03/27/23 22:45 36.6 C 63 18 134/83 95 Nasal Cannula Diagnostic Findings Chest x-ray demonstrated stable lead position without pneumothorax Device interrogation revealed good function of both the atrial and ventricular leads.
--- NOTE | 2023-03-28 12:49 | Discharge Summary ---
Date of Service March 28, 2023 Admission HPI Per Admitting Provider The patient is a 67-year-old male with a past medical history including syncope, left rotator cuff tendinitis and bicipital tendinitis, SNHL, Anderson's esophagus, impaired fasting glucose, BPH, bifascicular block, circadian rhythm delayed sleep disorder, and depression. The patient presents to the emergency department with an episode of syncope on 03/22, with negative workup at that time, and a recurrent episode of near syncope this evening. He was found to be in third-degree heart block, given atropine IV from the ED, and was then referred for evaluation for admission. Principal Diagnosis Third-degree atrioventricular block with bradycardia and syncope Discharge Exam General-alert and oriented x3, no fevers, no chills HEENT-head atraumatic and normocephalic, pupils equal and reactive to light, extraocular muscles intact Neck-no lymphadenopathy or thyromegaly, trachea midline Chest-clear to auscultation percussion. No rales, wheezing or rhonchi Cardiac-regular rate and rhythm, normal S1 and S2 Abdomen-normal bowel sounds, nontender, no hepatosplenomegaly Skinleft upper anterior chest wall pacer insertion site is unremarkable with hemostasis Extremities-no cyanosis, clubbing, or edema Neuro-cranial nerves II through XII intact, motor and sensory function within normal limits, strength symmetrical , no focal deficits Psych-normal affect, normal mood Discharge Data Allergies Allergy/AdvReac Type Severity Reaction Status Date / Time amoxicillin Allergy Intermediate Rash Verified 03/25/23 00:12 animal dander Allergy Mild Sneezing Verified 03/25/23 00:12 house dust Allergy Mild Sneezing Verified 03/25/23 00:12 mold Allergy Mild Sneezing Verified 03/25/23 00:12 Penicillins Allergy Mild Rash Verified 03/25/23 00:12 pollen extracts Allergy Mild Sneezing Verified 03/25/23 00:12 Consultations 03/24/23 23:56 ED Decision to Admit Stat 03/25/23 03:45 Consult Conductor And Engineer Routine 03/25/23 09:38 Consult Cardiology Routine Procedures Performed Operation Date: 03/27/23 08:00 Actual Procedures p Pacer with A/V Leads (Dual) - Klever Abrams MD Ordered Studies 03/27/23 07:30 EP Lab Images for PACS ONCE Hospital Course (1) Third degree heart block: Resolved. PPM implanted on March 27. Cardiology consultation and recommendations appreciated. Continue current medical management. (2) Syncope: Secondary to complete heart block. No recurrence while hospitalized. He now has a permanent cardiac pacemaker. Pacer insertion site is clean and dry without hematoma or bleeding. No signs of infection. Echocardiogram with EF 60-65%, no wall motion abnormalities, moderate LVH, mildly dilated RV with normal systolic function (3) Depression: Stable. Continue current medical management. (4) Hypertension: Stable. Continue losartan. Holding home HCTZ (5) CHI (closed head injury): CT head and cervical spine negative after falling due to syncope, with trauma to the face, on 03/22. Urine drug screen positive for barbiturates which is from the butalbital and the Fioricet (6) BPH loc w urin obs/LUTS: Stable. Continue tamsulosin (7) Hyperlipidemia: Stable. Continue atorvastatin Plan Home todayMarch 28 Total Time Total Time Spent Total Time Spent (In Minutes): 45 minutes Discharge Plan Discharge Items Patient Disposition: Home - Self-Care Reason For Visit: RECURRENT SYNCOPE, 3RD DEGREE HB Discharge Diagnosis: Third-degree AV block with bradycardia and syncope Activity: As commented below Activity Comment: Avoid raising left arm above the shoulders for 6 weeks Lifting: No more than 10 pounds Lifting Comment: No lifting left arm above shoulder behind neck for 6 weeks Bathing: Keep incision dry Bathing Comment: Keep wound dry and Steri-Strips intact until follow-up next week Non-emergency contact: Primary Care Provider and Hand Cutter Apprentice Call non-emergency contact if: you have any medication questions and your symptoms worsen Follow-up/Referrals: Pat Andujar MD [Primary Care Provider] - Diet: Regular and Heart Healthy Addtl Attending Provider Instructions: Avoid raising left arm above the shoulder for 6 weeks. All medications remain the same. Follow-up with cardiology as instructed Pending Studies at Discharge: No Stand-Alone Forms: My [facility], Smoking Cessation Medications and DC Order Prescriptions: Continued bupropion HCl [Wellbutrin XL] 150 mg tablet extended release 24 hr 150 mg PO QAM Qty: 30 5RF tamsulosin [Flomax] 0.4 mg capsule 0.4 mg PO QPM Qty: 90 1RF escitalopram oxalate [Lexapro] 20 mg tablet 20 mg PO QAM Qty: 90 1RF irbesartan 150 mg tablet 150 mg PO QPM Qty: 90 1RF atorvastatin 80 mg tablet 80 mg PO QPM Qty: 90 1RF fluticasone propionate 50 mcg/actuation spray,suspension 1 spray INTNAS BID Qty: 16 0RF Rx Instructions: 1 to 2 sprays INTNAS DAILY; administer into each nostril lorazepam [Ativan] 0.5 mg tablet 0.5 mg PO UD PRN (Reason: anxiety) Qty: 15 0RF hydrochlorothiazide 25 mg tablet 25 mg PO QAM Qty: 90 1RF levocetirizine 5 mg tablet 5 mg PO DAILY Qty: 30 11RF omeprazole 40 mg capsule,delayed release(DR/EC) 40 mg PO DAILY Rx Instructions: TAKE 1 CAPSULE BY MOUTH ONCE DAILY tgcthngpza-qujlifdbvyxdl-uasn 50-325-40 mg tablet 1 tab PO Q6H PRN (Reason: HEADACHES) montelukast 10 mg tablet 10 mg PO QPM Rx Instructions: TAKE ONE TABLET BY MOUTH ONCE DAILY IN THE EVENING baclofen 10 mg tablet 10 mg PO UD PRN (Reason: tension) azelastine 137 mcg (0.1 %) aerosol,spray 1 spray intranasal UD PRN (Reason: Nasal Congestion) Patient Comments: not very much Rx Instructions: Use 1-2 sprays in each nostril at bedtime as needed for nasal congestion. Allergy Shots 1 dose subcut UD PRN (Reason: allergies) Patient Comments: once every 2 weeks Discharge Orders: Discharge Order (Routine); Ordered 03/28/23 Ordered By: Gerard Johnson Admission Data Admit Date/Time: 03/25/23 00:44 Attending Provider: Gerard Johnson Admit Provider: Ismael Tang Primary Care Provider: Pat Andujar Other Providers: Ismael Tang; Sixto Norman; Herbie Lyman. Coding Level of Care Code 88470 INP/OBS DISCH >30 MIN Diagnoses Third degree heart block I44.2 Syncope R55 Syncope type: unspecified Depression, unspecified depression type F32.A Depression Type: unspecified Primary hypertension I10 Hypertension type: primary hypertension CHI (closed head injury) S09.90XA Encounter type: initial encounter BPH loc w urin obs/LUTS N40.1 Mixed hyperlipidemia E78.2 Hyperlipidemia type: mixed hyperlipidemia
[2023-03-30 12:11] LABS: Amobarbital, Urine Conf NEGATIVE ng/mL (<100); Butalbital, Urine 147 ng/mL (<100); MDA negative; MDEA negative; MDMA (Ecstasy) Urine, Confirm negative; Pentobarbital, Urine Conf NEGATIVE ng/mL (<100); Phenobarbital, Urine NEGATIVE ng/mL (<100); Secobarbital, Urine Conf NEGATIVE ng/mL (<100)
== END 2023-03-28 15:06 | disposition home or self-care (01) | DRG 243 ==
LOC: ED 22:05 → 1E 03-25 00:44 → SUATTDRO 03-25 00:44 → 1E 03-25 03:00 → 2S 03-26 15:25